=== PATIENT | female | born 1960 | race Caucasian/White ===

== ENCOUNTER 2017-09-19 18:15 | Inpatient (IN) | payer MEDICARE, MEDICAID ==
--- NOTE | 2017-09-19 19:58 | RAD ---
PORTABLE CHEST ONE VIEW 09/19/17 at 6:25 p.m. HISTORY: Chest pain. FINDINGS: The heart size is normal. The lungs are expanded without focal areas of consolidation, pneumothorax o r pleural effusions. There are degenerative changes in the spine and acromioclavicular joints. IMPRESSION: No acute process. POS: MYRAH
[2017-09-19 20:04] LABS: #Basophils 0.1 thou/uL (0.0-0.2); #Eosinphils 0.1 thou/uL (0.0-0.7); #Lymphocytes 2.2 thou/uL (1.20-3.40); #Monocytes 1.2 thou/uL (0.11-0.59); #Neutrophils 13.2 thou/uL (1.40-6.50); %Basophils 0.5 % (0.0-1.0); %Eosinophils 0.6 % (0.0-10.0); %Monocytes 7.3 % (0.0-10.0); %Neutrophils 78.6 % (42.0-75.0); Hemoglobin 13.3 g/dL (12.0-16.0); Mean Corpuscular HGB CONC 33.6 g/dL (32.0-36.0); Mean Corpuscular Hemoglobin 31.8 pg (27.0-31.0); Mean Corpuscular Volume 94.6 fl (81.0-99.0); Mean Platelet Volume 8.2 fL (7.4-10.4); Platelet Count 249 thou/uL (130-400); RBC Distribution Width 12.1 % (11.5-14.5); Red Blood Cell (RBC) Count 4.18 mill/uL (4.20-5.40); White Blood Cell (WBC) Count 16.8 thou/uL (4.8-10.8)
[2017-09-19 20:12] LABS: INR-International Normal Ratio 1.2; Prothrombin Time 15.2 SEC (12.0-14.7)
[2017-09-19 20:14] LABS: D-Dimer Test 0.76 *mcg/mL (0.27-0.43)
[2017-09-19 20:18] LABS: Bilirubin Negative (Negative); Blood, Urine Negative (Negative); Clarity CLOUDY (Clear); Glucose, Urine (Dipstick) Negative (Negative); Leukocyte Moderate (Negative); Nitrite Negative (Negative); Protein, Urine (Dipstick) 30 mg/dL (Neg-Trace); Specific Gravity, Urine 1.016 (1.002-1.036); Urobilinogen 0.2 mg/dL (0.2-1.0)
[2017-09-19 20:21] LABS: Bacteria/HPF 1+ HPF (None Seen); Hyaline Casts/LPF 0-3 HYALINE CAST LPF (0-3 Hyaline); Squamous Epithelial 0-3 HPF (0-3); WBC/HPF 21-50 HPF (0-3)
[2017-09-19] MEDS ORDERED: Ondansetron HCl/PF 4 MG/2 ML Vial ONE (20:32)
[2017-09-19] MEDS ORDERED: Morphine 4 MG/ML Carpuject ONE (20:32)
[2017-09-19 20:38] LABS: ALT (SGPT) 20 U/L (8-55); AST (SGOT) 26 U/L (5-34); Albumin 4.4 g/dL (3.5-5.0); Alkaline Phosphatase 104 U/L (40-150); Anion Gap 17 mmol/L (10-20); BUN (Urea Nitrogen) 11 mg/dL (9.8-20.1); Bilirubin, Total 0.4 mg/dL (0.2-1.2); Calc. Creatinine Clearance 0 mL/min (70-130); Calcium 9.8 mg/dL (7.8-10.44); Carbon Dioxide 20 mmol/L (22-29); Chloride 104 mmol/L (98-107); Estimated GFR-MDRD 60; Globulin 3.4 g/dL (2.4-3.5); Glucose 166 mg/dL (70-105); Lipase 6 U/L (8-78); Magnesium 1.2 mg/dL (1.6-2.6); Potassium 3.7 mmol/L (3.5-5.1); Protein, Total 7.8 g/dL (6.0-8.3); Sodium 137 mmol/L (136-145)
[2017-09-19 20:58] LABS: CKMB 0.5 ng/mL (0-6.6); Troponin I Less than 0.010 ng/mL (< 0.028)
[2017-09-19] MEDS ORDERED: Magnesium Sulfate 2 GM/100 ML BAG ONE (20:58)
--- NOTE | 2017-09-19 22:17 | CT ---
CT PULMONARY ANGIOGRAM WITH IV CONTRAST AND 3D POSTPROCESSING 09/19/17 HISTORY: Shortness of breath. Chest pain. FINDINGS: No filling defects are seen in the contrast opacified pulmonary arterial vasculature to suggest pulmo nary embolism. The thoracic aorta is opacified without aneurysmal dissection. No pleural or pericardi al effusions are seen. No pneumothoraces are identified. There are mild infiltrates versus atelectati c changes in the posterior lung cuello. There are degenerative changes in the spine. IMPRESSION: No CT evidence of pulmonary embolism. POS: MOSES
--- NOTE | 2017-09-19 22:46 | CT ---
CT ABDOMEN AND PELVIS WITH IV CONTRAST 09/19/17 HISTORY: Abdominal pain. FINDINGS: There are mild dependent changes in the lung bases. The patient is post cholecystectomy. Mild intrahe patic biliary ductal dilatation is seen likely due to reservoir effect. No hepatic mass is noted. The spleen, pancreas, adrenal glands and left kidney are normal. There is mild right sided hydroureteron ephrosis and right perinephric inflammatory change. No calculi are seen in the urinary tract. No free air, free fluid, lymphadenopathy is noted in the abdomen or pelvis. The patient is post hyste rectomy. There is mild sigmoid diverticulosis. There are vascular calcifications without evidence of aneurysmal dilatation of the abdominal aorta. There are degenerative changes in the spine. IMPRESSION: Recently passed urinary tract calculus versus UTI. POS: MYRA
[2017-09-19] MEDS ORDERED: Acetaminophen 500 MG TAB ONE (23:09)
[2017-09-19] MEDS ORDERED: Metoclopramide HCl 10 MG/2 ML VIAL ONE (23:35)
[2017-09-19] MEDS ORDERED: diphenhydrAMINE 50 MG/ML VIAL ONE (23:35)
[2017-09-20] MEDS ORDERED: HYDROcodone/Acetaminophen 5/325 mg Tablet ONE (00:02)
[2017-09-20] MEDS ORDERED: Ondansetron ODT 4 MG TAB SL PRN (01:27)
[2017-09-20] MEDS ORDERED: Acetaminophen 325 MG TAB PO PRN (01:27)
[2017-09-20] MEDS ORDERED: Sodium Chloride 0.9% 1,000 ML IV SCH (01:27)
[2017-09-20] MEDS ORDERED: Ondansetron HCl/PF 4 MG/2 ML Vial IVP PRN (01:27)
[2017-09-20 01:33] VITALS: BMI 25.1
[2017-09-20] MEDS ORDERED: cefTRIAXone\\ROCEPHIN 1 GM in Sodium Chloride 0.9% 100 ML IVPB SCH (09:00)
[2017-09-20] MEDS ORDERED: Azithromycin 250 MG TAB PO SCH (09:00)
[2017-09-20] MEDS: Acetaminophen 325 MG TAB PO PRN ×2 (09:30→20:39)
[2017-09-20] MEDS: Pregabalin 75 MG CAP PO SCH ×2 (10:07→20:37)
[2017-09-20] MEDS: Famotidine 20 MG TAB PO SCH ×2 (10:07→20:37)
[2017-09-20] MEDS: Enoxaparin Sodium 40 MG/0.4 ML SYRINGE SC SCH (10:09)
[2017-09-20] MEDS: Lisinopril 5 MG TAB PO SCH (10:09)
[2017-09-20] MEDS: Azithromycin 250 MG TAB PO SCH (10:23)
[2017-09-20] MEDS ORDERED: HumaLOG 300 UNITS/3 ML VIAL SC PRN (15:33)
[2017-09-20] MEDS ORDERED: Dextrose 50% Abboject 50 ML SYRINGE IVP PRN (15:33)
[2017-09-20] MEDS ORDERED: Dextrose 5% in Water 1,000 ML IV PRN (15:33)
[2017-09-20] MEDS ORDERED: Aspirin/APAP/Caffeine Tab (Excedrin Migraine) PO PRN (15:37)
[2017-09-20] MEDS: glipiZIDE 10 MG TAB PO SCH (16:05)
[2017-09-20] MEDS: traMADol HCl 50 MG TAB PO PRN ×2 (16:05→22:25)
[2017-09-20] MEDS: Atorvastatin Calcium 20 MG TAB PO SCH (20:37)
[2017-09-20] MEDS: cefTRIAXone\\ROCEPHIN 1 GM, Syringe 0.4 ML in Sterile Water 9.6 ML SLOW IVP SCH (22:24)
[2017-09-21] MEDS: Acetaminophen 325 MG TAB PO PRN ×2 (01:04→20:36)
[2017-09-21] MEDS: Ondansetron ODT 4 MG TAB PO PRN ×4 (01:04→22:52)
[2017-09-21] MEDS ORDERED: Aspirin/APAP/Caffeine Tab (Excedrin Migraine) PO PRN (03:58)
[2017-09-21] MEDS: traMADol HCl 50 MG TAB PO PRN ×4 (05:03→22:51)
[2017-09-21 05:47] LABS: #Lymphocytes 1.9 thou/uL (1.20-3.40); #Monocytes 1.1 thou/uL (0.11-0.59); #Neutrophils 8.3 thou/uL (1.40-6.50); %Basophils 0.1 % (0.0-1.0); %Eosinophils 0.4 % (0.0-10.0); %Lymphocytes 16.6 % (21.0-51.0); %Monocytes 9.5 % (0.0-10.0); %Neutrophils 73.4 % (42.0-75.0); Mean Corpuscular HGB CONC 33.1 g/dL (32.0-36.0); Mean Corpuscular Hemoglobin 31.6 pg (27.0-31.0); Mean Corpuscular Volume 95.5 fl (81.0-99.0); Mean Platelet Volume 8.4 fL (7.4-10.4); Platelet Count 188 thou/uL (130-400); RBC Distribution Width 12.1 % (11.5-14.5); Red Blood Cell (RBC) Count 3.47 mill/uL (4.20-5.40); White Blood Cell (WBC) Count 11.3 thou/uL (4.8-10.8)
[2017-09-21] MEDS: glipiZIDE 10 MG TAB PO SCH ×2 (08:56→15:35)
[2017-09-21] MEDS: Azithromycin 250 MG TAB PO SCH (08:56)
[2017-09-21] MEDS: Pregabalin 75 MG CAP PO SCH ×2 (08:56→20:36)
[2017-09-21] MEDS: Lisinopril 5 MG TAB PO SCH (08:57)
[2017-09-21] MEDS: Enoxaparin Sodium 40 MG/0.4 ML SYRINGE SC SCH (08:57)
[2017-09-21] MEDS: Famotidine 20 MG TAB PO SCH ×2 (08:57→20:37)
--- NOTE | 2017-09-21 10:56 | PDOC.PN ---
- Subjective Encounter Start Date: 09/21/17 Encounter Start Time: 10:54 Subjective: Seen and examined -c/o severe headache with light borthering her - Objective Resuscitation Status: Resuscitation Status FULL:Full Resuscitation Vital Signs & Weight: Vital Signs (12 hours) Temp Pulse Resp BP Pulse Ox 09/21/17 08:00 99.2 F 93 17 112/67 99 09/21/17 04:00 99.7 F H 104 H 20 134/58 L 93 L 09/21/17 00:00 99.2 F 105 H 20 107/52 L 96 Weight Weight 163 lb 11.2 oz I&O: 09/20/17 09/21/17 09/22/17 06:59 06:59 06:59 Intake Total 760 1400 Output Total 600 1400 Balance 160 0 Result Diagrams: 09/21/17 05:14 09/19/17 19:47 Additional Labs: Accuchecks 09/21/17 09/21/17 09/20/17 05:46 00:52 20:15 POC Glucose 213 H 166 H 204 H 09/20/17 09/20/17 16:18 11:28 POC Glucose 161 H 207 H Phys Exam - Physical Examination Constitutional: NAD HEENT: PERRLA, moist MMs, sclera anicteric, TM's clear Neck: no nodes, no JVD, supple, full ROM Respiratory: no wheezing, no rhonchi, clear to auscultation bilateral Cardiovascular: RRR, no rub, gallop Gastrointestinal: soft, non-tender, no distention, positive bowel sounds Musculoskeletal: no edema, pulses present Dx/Plan (1) Pneumonia Code(s): J18.9 - PNEUMONIA, UNSPECIFIED ORGANISM Status: Acute (2) UTI (urinary tract infection) Status: Acute (3) Diabetes 1.5, managed as type 2 Code(s): E10.9 - TYPE 1 DIABETES MELLITUS WITHOUT COMPLICATIONS Status: Acute (4) Migraine with acute onset aura Code(s): G43.109 - MIGRAINE WITH AURA, NOT INTRACTABLE, W/O STATUS MIGRAINOSUS Status: Acute - Plan plan discussed w/ family, continue antibiotics, PT/OT, social worker school, respiratory therapy Antibiotics adequate per urine senstivity -: imitrex * .
[2017-09-21] MEDS ORDERED: SUMAtriptan Succinate 25 MG TAB PO SCH (11:30)
--- NOTE | 2017-09-21 12:20 | HP ---
REASON FOR ADMISSION/CHIEF COMPLAINT: Shortness of breath. HISTORY OF PRESENT ILLNESS: This is a 56-year-old patient with a past medical history significant fo r diabetes and hypertension, who presented here with a several hour history of shortness of breath, a ssociated cough that . The patient denies any sick contacts. She presented to the ER where michell ging studies were suspicious for a urinary tract infection as well as some . The patient denies any hematuria, denies any dysuria. She is now admitted for further workup. The patient also did gi ve history of also vomiting, but not persistent. PAST MEDICAL HISTORY: Significant for diabetes type 2, hypertension, dyslipidemia. History . ALLERGIES: LEVAQUIN. SOCIAL HISTORY: Denies alcohol, tobacco or illicit drug use. REVIEW OF SYSTEMS: As documented in the body of the history, all the other systems were reviewed and not significant unless related to the present illness. LABORATORY INVESTIGATION: White count 16,800, H&H is unremarkable. Urine showed 1+ bacteria with a lot of white blood cells, moderate leukocyte esterase. PHYSICAL EXAMINATION: GENERAL: The patient was found to be in some respiratory distress, constantly coughing. VITAL SIGNS: Temperature 97.5, pulse 88, respiratory rate 17, O2 sat 98%, blood pressure 90/54. HEENT: Unremarkable. . RESPIRATORY: Some rales. DIGESTIVE SYSTEM: Revealed a benign abdomen. SKIN: Showed no gross rash. NEURO: IMPRESSION: 1. Generalized bodyaches with cough and shortness of breath, query PCP pneumonia. 2. Urinary tract infection. 3. Possible recent nephrolithiasis. 4. Type 2 diabetes. PLAN: 1. The patient to be covered with antibiotics for possible pneumonitis and urinary tract infection. 2. management. 3. Further management to be dependent on the clinical course. The patient to continue with diabetic management. The patient to be on sliding scale as scheduled.
[2017-09-21] MEDS: metFORMIN XR 500 MG TAB PO SCH (16:03)
[2017-09-21] MEDS: Atorvastatin Calcium 20 MG TAB PO SCH (20:36)
[2017-09-21] MEDS: cefTRIAXone\\ROCEPHIN 1 GM, Syringe 0.4 ML in Sterile Water 9.6 ML SLOW IVP SCH (22:51)
[2017-09-22] MEDS: traMADol HCl 50 MG TAB PO PRN ×3 (04:51→17:42)
[2017-09-22 05:31] LABS: #Basophils 0.1 thou/uL (0.0-0.2); #Eosinphils 0.2 thou/uL (0.0-0.7); #Lymphocytes 2.1 thou/uL (1.20-3.40); #Monocytes 0.8 thou/uL (0.11-0.59); #Neutrophils 4.8 thou/uL (1.40-6.50); %Basophils 0.7 % (0.0-1.0); %Eosinophils 2.9 % (0.0-10.0); %Lymphocytes 26.1 % (21.0-51.0); %Monocytes 10.1 % (0.0-10.0); %Neutrophils 60.1 % (42.0-75.0); Hemoglobin 10.9 g/dL (12.0-16.0); Mean Corpuscular HGB CONC 33.5 g/dL (32.0-36.0); Mean Corpuscular Hemoglobin 31.8 pg (27.0-31.0); Mean Corpuscular Volume 94.9 fl (81.0-99.0); Mean Platelet Volume 8.6 fL (7.4-10.4); Platelet Count 190 thou/uL (130-400); Red Blood Cell (RBC) Count 3.42 mill/uL (4.20-5.40)
--- NOTE | 2017-09-22 07:08 | PDOC.PN ---
- Subjective Encounter Start Date: 09/22/17 Encounter Start Time: 07:07 Subjective: Seen and examined still c/o migraine headache and photophobia -: Shortness of breath improving - Objective Resuscitation Status: Resuscitation Status FULL:Full Resuscitation Vital Signs & Weight: Vital Signs (12 hours) Temp Pulse Resp BP Pulse Ox 09/22/17 04:00 97.8 F 76 20 99/54 L 95 09/22/17 00:00 98.8 F 75 16 141/66 H 93 L 09/21/17 20:00 97.8 F 82 14 131/62 99 Weight Weight 159 lb 9.6 oz I&O: 09/21/17 09/22/17 09/23/17 06:59 06:59 06:59 Intake Total 1400 1120 Output Total 1400 1500 Balance 0 -380 Result Diagrams: 09/22/17 05:02 09/19/17 19:47 Additional Labs: Accuchecks 09/22/17 09/21/17 09/21/17 05:29 20:41 15:38 POC Glucose 140 H 131 H 143 H 09/21/17 11:44 POC Glucose 158 H Phys Exam - Physical Examination Constitutional: NAD HEENT: PERRLA, moist MMs, sclera anicteric, TM's clear Neck: no nodes, no JVD, supple Respiratory: no wheezing Cardiovascular: RRR, no significant murmur, no rub Gastrointestinal: soft, non-tender, no distention, positive bowel sounds Musculoskeletal: no edema, pulses present Dx/Plan (1) Pneumonia Code(s): J18.9 - PNEUMONIA, UNSPECIFIED ORGANISM Status: Acute (2) UTI (urinary tract infection) Status: Acute (3) Diabetes 1.5, managed as type 2 Code(s): E10.9 - TYPE 1 DIABETES MELLITUS WITHOUT COMPLICATIONS Status: Acute (4) Migraine with acute onset aura Code(s): G43.109 - MIGRAINE WITH AURA, NOT INTRACTABLE, W/O STATUS MIGRAINOSUS Status: Acute - Plan continue antibiotics, manager social work, respiratory therapy Resume imitrex-responded well to one dose yesterday -: Change to oral antiobiotics -: If sustained improvement consider d/c next 24hrs * .
[2017-09-22] MEDS ORDERED: SUMAtriptan Succinate 50 MG TAB PO PRN (07:10)
[2017-09-22] MEDS ORDERED: SUMAtriptan Succinate 25 MG TAB PO SCH (07:15)
[2017-09-22] MEDS: metFORMIN XR 500 MG TAB PO SCH ×2 (07:40→17:42)
[2017-09-22] MEDS: glipiZIDE 10 MG TAB PO SCH ×2 (07:40→17:43)
[2017-09-22] MEDS: Lisinopril 5 MG TAB PO SCH (09:14)
[2017-09-22] MEDS: Cefdinir 300 MG CAP PO SCH ×2 (09:14→21:42)
[2017-09-22] MEDS: Famotidine 20 MG TAB PO SCH ×2 (09:14→21:43)
[2017-09-22] MEDS: Azithromycin 250 MG TAB PO SCH (09:14)
[2017-09-22] MEDS: Pregabalin 75 MG CAP PO SCH ×2 (09:15→21:42)
[2017-09-22] MEDS: Enoxaparin Sodium 40 MG/0.4 ML SYRINGE SC SCH (09:17)
[2017-09-22] MEDS: Atorvastatin Calcium 20 MG TAB PO SCH (21:42)
[2017-09-23] MEDS: traMADol HCl 50 MG TAB PO PRN ×2 (00:08→08:35)
[2017-09-23 05:18] LABS: #Eosinphils 0.2 thou/uL (0.0-0.7); #Lymphocytes 2.8 thou/uL (1.20-3.40); #Monocytes 0.6 thou/uL (0.11-0.59); #Neutrophils 4.3 thou/uL (1.40-6.50); %Basophils 0.4 % (0.0-1.0); %Eosinophils 2.9 % (0.0-10.0); %Lymphocytes 34.6 % (21.0-51.0); %Monocytes 7.9 % (0.0-10.0); Mean Corpuscular HGB CONC 34.5 g/dL (32.0-36.0); Mean Corpuscular Hemoglobin 32.8 pg (27.0-31.0); Mean Corpuscular Volume 94.9 fl (81.0-99.0); Mean Platelet Volume 8.5 fL (7.4-10.4); Platelet Count 233 thou/uL (130-400); Red Blood Cell (RBC) Count 3.66 mill/uL (4.20-5.40); White Blood Cell (WBC) Count 7.9 thou/uL (4.8-10.8)
[2017-09-23] MEDS: Cefdinir 300 MG CAP PO SCH (08:34)
[2017-09-23] MEDS: metFORMIN XR 500 MG TAB PO SCH (08:34)
[2017-09-23] MEDS: Famotidine 20 MG TAB PO SCH (08:34)
[2017-09-23] MEDS: Azithromycin 250 MG TAB PO SCH (08:34)
[2017-09-23] MEDS: Pregabalin 75 MG CAP PO SCH (08:35)
[2017-09-23] MEDS: Lisinopril 5 MG TAB PO SCH (08:35)
[2017-09-23] MEDS: glipiZIDE 10 MG TAB PO SCH (08:35)
[2017-09-23] MEDS: Enoxaparin Sodium 40 MG/0.4 ML SYRINGE SC SCH (08:36)
--- NOTE | 2017-09-23 10:52 | PDOC.PN ---
- Subjective Encounter Start Date: 09/23/17 Encounter Start Time: 07:50 -: old records requested/rev Patient seen and examined. No new complaints. No overnight events - Objective Resuscitation Status: Resuscitation Status FULL:Full Resuscitation MAR Reviewed: Yes Vital Signs & Weight: Vital Signs (12 hours) Temp Pulse Resp BP Pulse Ox 09/23/17 08:00 97.7 F 77 17 117/57 L 97 09/23/17 04:36 98.3 F 65 16 106/58 L 96 Weight Weight 157 lb 14.4 oz I&O: 09/22/17 09/23/17 09/24/17 06:59 06:59 06:59 Intake Total 1120 360 Output Total 1500 800 Balance -380 -440 Result Diagrams: 09/23/17 04:08 09/19/17 19:47 Additional Labs: Accuchecks 09/23/17 09/22/17 09/22/17 05:25 20:52 17:18 POC Glucose 140 H 149 H 160 H 09/22/17 11:29 POC Glucose 161 H EKG Reviewed by me: Yes Phys Exam - Physical Examination Constitutional: NAD HEENT: PERRLA, moist MMs, sclera anicteric Neck: no JVD, supple Respiratory: no wheezing, no rales, no rhonchi Cardiovascular: RRR, no significant murmur, no rub Gastrointestinal: soft, non-tender, no distention, positive bowel sounds Musculoskeletal: no edema, pulses present Neurological: non-focal, normal sensation, moves all 4 limbs Psychiatric: normal affect, A&O x 3 Skin: no rash, normal turgor Dx/Plan (1) Migraine headache Code(s): G43.909 - MIGRAINE, UNSP, NOT INTRACTABLE, WITHOUT STATUS MIGRAINOSUS Status: Acute (2) Sepsis Code(s): A41.9 - SEPSIS, UNSPECIFIED ORGANISM Status: Acute (3) UTI (urinary tract infection) Status: Acute (4) Diabetes type 2, controlled Code(s): E11.9 - TYPE 2 DIABETES MELLITUS WITHOUT COMPLICATIONS Status: Chronic (5) Dyslipidemia Code(s): E78.5 - HYPERLIPIDEMIA, UNSPECIFIED Status: Chronic (6) Hypertension Code(s): I10 - ESSENTIAL (PRIMARY) HYPERTENSION Status: Chronic - Plan cont current plan of care, continue antibiotics * medication reviewed as below * symptomatic treatment * see discharge summery. Review of Systems - Review of Systems ENT: negative: Ear Pain, Ear Discharge, Nose Pain, Nose Discharge, Nose Congestion, Mouth Pain, Mouth Swelling, Throat Pain, Throat Swelling, Other Respiratory: negative: Cough, Dry, Shortness of Breath, Hemoptysis, SOB with Excertion, Pleuritic Pain, Sputum, Wheezing Cardiovascular: negative: chest pain, palpitations, orthopnea, paroxysmal nocturnal dyspnea, edema, light headedness, other Gastrointestinal: negative: Nausea, Vomiting, Abdominal Pain, Diarrhea, Constipation, Melena, Hematochezia, Other Genitourinary: negative: Dysuria, Frequency, Incontinence, Hematuria, Retention , Other Musculoskeletal: negative: Neck Pain, Shoulder Pain, Arm Pain, Back Pain, Hand Pain, Leg Pain, Foot Pain, Other Skin: negative: Rash, Lesions, Zane, Bruising, Other - Medications/Allergies Allergies/Adverse Reactions: Allergies Allergy/AdvReac Type Severity Reaction Status Date / Time levofloxacin [From Levaquin] Allergy Verified 09/20/17 01:29 Medications: Current Medications Acetaminophen (Tylenol) 650 mg PO Q4H PRN PRN Reason: Headache/Fever or Pain Last Admin: 09/21/17 20:36 Dose: 650 mg Acetaminophen/Aspirin/Caffeine (Excedrin Migraine) 2 tab PO DAILYPRN PRN PRN Reason: Headache Last Admin: 09/21/17 11:01 Dose: 2 tab Atorvastatin Calcium (Lipitor) 20 mg PO HS [facility] Last Admin: 09/22/17 21:42 Dose: 20 mg Azithromycin (Zithromax) 500 mg PO DAILY [facility] Last Admin: 09/23/17 08:34 Dose: 500 mg Cefdinir (Omnicef) 300 mg PO BID [facility] Last Admin: 09/23/17 08:34 Dose: 300 mg Dextrose/Water (Dextrose 50%) 25 gm IVP PRN PRN PRN Reason: HYPOGLYCEMIA PROTOCOL Enoxaparin Sodium (Lovenox) 40 mg SC 0900 [facility] Last Admin: 09/23/17 08:36 Dose: 40 mg Famotidine (Pepcid) 20 mg PO BID [facility] Last Admin: 09/23/17 08:34 Dose: 20 mg Glipizide (Glucotrol) 10 mg PO BID-AC [facility] Last Admin: 09/23/17 08:35 Dose: 10 mg Glucagon (Glucagon) 1 mg IM PRN PRN PRN Reason: HYPOGLYCEMIA PROTOCOL Dextrose/Water (D5w) 1,000 mls @ 0 mls/hr IV INF PRN; As Directed PRN Reason: HYPOGLYCEMIA PROTOCOL Insulin Human Lispro (Humalog) 0 units SC .MILD SLIDING SCALE PRN; Protocol PRN Reason: MILD SLIDING SCALE Last Admin: 09/20/17 20:39 Dose: 3 unit Lisinopril (Zestril) 5 mg PO DAILY [facility] Last Admin: 09/23/17 08:35 Dose: 5 mg Metformin HCl (Glucophage Xr) 1,000 mg PO BID-[facility] Last Admin: 09/23/17 08:34 Dose: 1,000 mg Ondansetron HCl (Zofran Odt) 4 mg PO Q6H PRN PRN Reason: Nausea/Vomiting Last Admin: 09/21/17 22:52 Dose: 4 mg Pregabalin (Lyrica) 75 mg PO BID [facility] Last Admin: 09/23/17 08:35 Dose: 75 mg Sodium Chloride (Flush - Normal Saline) 10 ml IVF Q12HR [facility] Last Admin: 09/23/17 08:39 Dose: 10 ml Sodium Chloride (Flush - Normal Saline) 10 ml IVF PRN PRN PRN Reason: Saline Flush Last Admin: 09/21/17 22:51 Dose: 10 ml Sumatriptan Succinate (Imitrex) 50 mg PO PRN PRN PRN Reason: Migraine Headache Tramadol HCl (Ultram) 50 mg PO Q6H PRN PRN Reason: Pain Last Admin: 09/23/17 08:35 Dose: 50 mg
[2017-09-23 11:44] VITALS: BP 122/59; TEMP 98.1
--- NOTE | 2017-09-23 12:08 | DIS ---
DATE OF ADMISSION: 09/20/2017 DATE OF DISCHARGE: 09/23/2017 PRIMARY CARE PHYSICIAN: Hayde Velasco M.D. DISCHARGE DISPOSITION: Home. PRIMARY DISCHARGE DIAGNOSES: 1. Sepsis. 2. Urinary tract infection. 3. Acute migraine headache. 4. Hypomagnesemia, corrected. SECONDARY DISCHARGE DIAGNOSES: Diabetes type 2, hypertension, dyslipidemia. PRIMARY PROCEDURE/OPERATION: None. RADIOLOGICAL INVESTIGATION: Chest x-ray showed no acute cardiopulmonary process. Abdomen and pelvis CT scan showed a recently passed urinary tract calculus, mild right-sided hydroureteronephrosis, and right perinephric inflammatory change. CT angio was negative for PE. SIGNIFICANT LABORATORY DATA: His WBC 7.9, hemoglobin 12.0, platelets 233. INR 1.2, D-dimer 0.76, cr eatinine 0.95. LFT normal. Urinalysis suggestive of UTI. Urine culture grew Citrobacter. Blood cu lture negative. Influenza screen negative. DISCHARGE MEDICATIONS: Excedrin 1 or 2 tablets p.o. daily p.r.n. for migraine headaches, Lipitor 20 mg p.o. at bedtime, Omnicef 300 mg p.o. b.i.d. for 7 days, glipizide 10 mg p.o. b.i.d., lisinopril 5 mg p.o. daily, metformin 1000 mg p.o. b.i.d., Lyrica 75 mg p.o. b.i.d., and tramadol 50 mg q.6 hourly p.r.n. CONTRAINDICATIONS: None. CODE STATUS: FULL CODE. INPATIENT CONSULTANTS: None. ALLERGIES: LEVAQUIN. DISCHARGE PLAN: Post hospital, the patient will follow up with primary care physician in 1 week. HOSPITAL COURSE: A 56-year-old female who was admitted by Dr. Rao, please see his H and P for further details. The patient was having UTI symptoms and right-sided CVA tenderness. She was also meeting sepsis criteria. She had elevated D-dimer and that is why CT angio was done which was negati ve for PE. Chest x-ray was normal. While in the hospital, she was treated with Rocephin. She had u rine culture positive for Citrobacter. On discharge, we changed to Omnicef to finish complete course of therapy. Patient will resume all her previous medications. While in hospital, the patient was c ompletely asymptomatic. On the day of discharge and day before, she was having mild migraine headach e which was also improving with symptomatic treatment. Patient is seen and examined at bedside today. Please see the progress note from today for further d etails. All the medication prescriptions sent to her pharmacy.
== END 2017-09-23 11:38 | disposition home or self-care (01) | DRG 872 ==
LOC: ERS 18:15 → 2NO 09-20 00:59
PROVIDERS: ADMIT Internal Medicine; ATTEND Internal Medicine
DX: A41.9 Sepsis, unspecified organism (principal); E83.42 Hypomagnesemia; N39.0 Urinary tract infection, site not specified; N13.6 Pyonephrosis; E11.9 Type 2 diabetes mellitus without complications; I10 Essential (primary) hypertension; E78.5 Hyperlipidemia, unspecified; Z88.1 Allergy status to other antibiotic agents; B96.89 Other specified bacterial agents as the cause of diseases classified elsewhere; G43.109 Migraine with aura, not intractable, without status migrainosus; F17.210 Nicotine dependence, cigarettes, uncomplicated; F32.9 Major depressive disorder, single episode, unspecified
CPT/HCPCS: 36415; 36416; 71045; 71275; 74177; 80053; 81003; 81015; 82553; 83605; 83690; 83735; 84443; 84484; 85025; 85379; 85610; 87040; 87077; 87086; 87186; 90471; 90732; 93005; 96361; 96365; 96367; 96375; 99406; A4216; G0009; J0696; J1200; J1650; J2270; J2405; J2765; J3475; Q0162

== ENCOUNTER 2017-12-10 14:43 | Outpatient (CLI) | payer MEDICARE, MEDICAID | END 2017-12-10 14:44 | disposition home or self-care (01) | LOC: BICMAMMO 14:43 | PROVIDERS: ATTEND Family Medicine | DX: Z12.31 Encounter for screening mammogram for malignant neoplasm of breast (principal); M25.551 Pain in right hip; M25.561 Pain in right knee; R92.1 Mammographic calcification found on diagnostic imaging of breast; M16.11 Unilateral primary osteoarthritis, right hip | CPT/HCPCS: 77063; 77067 ==

== ENCOUNTER 2017-12-18 07:57 | Outpatient (CLI) | payer MEDICARE, MEDICAID | END 2017-12-18 07:58 | disposition home or self-care (01) | LOC: BICMRI 07:57 | PROVIDERS: ATTEND Family Medicine | DX: M51.16 Intervertebral disc disorders with radiculopathy, lumbar region (principal); M51.17 Intervertebral disc disorders with radiculopathy, lumbosacral region; M99.83 Other biomechanical lesions of lumbar region | CPT/HCPCS: 72148 ==

== ENCOUNTER 2018-02-18 19:13 | Emergency (ER) | payer MEDICARE, OTHER ==
[2018-02-18] MEDS ORDERED: methylPREDNISolone Sod Succ/PF 125 MG/2 ML VIAL ONE (19:31)
[2018-02-18] MEDS ORDERED: diphenhydrAMINE 50 MG/ML VIAL ONE (19:31)
[2018-02-18] MEDS ORDERED: Famotidine 20 MG TAB ONE (19:51)
== END 2018-02-18 22:42 | disposition home or self-care (01) ==
LOC: ERS 19:13
DX: T78.3XXA Angioneurotic edema, initial encounter (principal); K21.9 Gastro-esophageal reflux disease without esophagitis; E11.9 Type 2 diabetes mellitus without complications; E78.5 Hyperlipidemia, unspecified; I10 Essential (primary) hypertension; F32.9 Major depressive disorder, single episode, unspecified; F17.210 Nicotine dependence, cigarettes, uncomplicated; Z79.899 Other long term (current) drug therapy; Z79.84 Long term (current) use of oral hypoglycemic drugs
CPT/HCPCS: 96361; 96374; 96375; J1200; J2930

== ENCOUNTER 2018-03-31 11:53 | Observation (INO) | payer MEDICARE, MEDICAID ==
[2018-03-31] MEDS ORDERED: diphenhydrAMINE 50 MG/ML VIAL ONE (12:49)
[2018-03-31] MEDS ORDERED: Famotidine/PF 20 mg/2ml Vial SLOW IVP SCH (13:00)
[2018-03-31] MEDS ORDERED: methylPREDNISolone Sod Succ/PF 125 MG/2 ML VIAL ONE (14:28)
[2018-03-31] MEDS ORDERED: Sterile Water 10 ML ONE (14:29)
--- NOTE | 2018-03-31 15:44 | PDOC.FPRHP ---
- History of Present Illness Chief Complaint: Angioedema, face swelling History of Present Illness: This is a 57 yo F with a PMH of DM, HTN, HLD, and GERD who presents to the ED with a cc of facial swelling. She states that she was taking her medication this morning and her lips began swelling, first on one side and then spread to the othe rside. She denies any trouble breathing, wheezing, or chest pain. She states that she feels like something is stuck in her throat but this feeling is resloving. She states that she has been having some stabbing pain with swallowing in the last 3 days that is resolving. She states that she had a similar episode of lip swelling 3-4 months ago. She has been taking lisinopril for 3 years and continued taking it after her initial episode of lip swelling. ED Course: Pt, Received solumedrol in ED - Allergies/Adverse Reactions Allergies Allergy/AdvReac Type Severity Reaction Status Date / Time levofloxacin [From Levaquin] Allergy Verified 09/20/17 01:29 - Home Medications Medication Instructions Recorded Confirmed Type Aspirin/Acetaminophen/Caffeine 2 tablet PO DAILY PRN 09/20/17 09/20/17 History [Excedrin Extra Strength Caplet] Atorvastatin Calcium [Lipitor] 20 mg PO HS 09/20/17 09/20/17 History Lisinopril [Zestril] 5 mg PO DAILY 09/20/17 09/20/17 History Pregabalin [Lyrica] 75 mg PO BID 09/20/17 09/20/17 History glipiZIDE [Glipizide] 10 mg PO BID 09/20/17 09/20/17 History metFORMIN HCl [Fortamet] 1,000 mg PO BID-WM 09/20/17 09/20/17 History Cefdinir [Omnicef] 300 mg PO BID #14 cap 09/23/17 Rx traMADol HCl [Ultram] 50 mg PO Q6H PRN #30 tab 09/23/17 Rx - History PMHx:DMII, HLD, HTN, GERD PSHx: Appendectomy, cholecyectomy, hysterectomy FHx:Mother had Stroke, [place] Social: Quit smoking a 6 months ago - Review of Systems General: denies: fever/chills, weight/appetite/sleep changes Eyes: denies: eye pain, vision changes ENT: denies: nasal congestion, rhinorrhea Respiratory: reports: cough (dry). denies: shortness of breath Cardiovascular: reports: palpitation (States that she will have palpitations randomly, at rest, denies pain or SOB with episodes). denies: chest pain Gastrointestinal: denies: nausea, vomiting, diarrhea, constipation, abdominal pain Genitourinary: denies: dysuria, discharge Skin: denies: rashes, lesions Musculoskeletal: reports: pain (Has back pain), stiffness Neurological: denies: numbness, syncope Psychological: denies: anxiety, depression - Vital signs BP: [109/78] HR: [93] RR: [16] Tmax: [98.1] Pox: [96]% on [RA] Wt: [71.67] - Physical Exam Constitutional: NAD, awake, alert and oriented, well developed HEENT: normocephalic and atraumatic, PERRLA, EOMI, conjunctiva clear -HEENT: Pt. has mild to moderate upper and lower lip swelling. Mild tongue swelling. No neck swelling Neck: FROM, trachea midline Chest: no-tender to palpation Heart: RRR, normal S1/S2, no murmurs/rubs/gallops Lungs: CTAB, no respiratory distress, good air movement, no rales/rhonchi, no wheezing, no retractions Abdomen: soft, non-tender, bowel sounds present Musculoskeletal: normal structure, normal tone, ROM grossly normal Neurological: no focal deficit, normal sensation Skin: no rash/lesions, good turgor Heme/Lymphatic: no unusual bruising or bleeding, no purpura Psychiatric: normal mood and affect, good judgment and insight, intact recent and remote memory FMR H&P: Results - Labs Lab results: Blood glucose: 158 FMR H&P: A/P - Problem List (1) Angioedema Current Visit: Yes Status: Acute Code(s): T78.3XXA - ANGIONEUROTIC EDEMA, INITIAL ENCOUNTER (2) Diabetes mellitus, type 2 Current Visit: Yes Status: Acute (3) Dyslipidemia Current Visit: No Status: Chronic Code(s): E78.5 - HYPERLIPIDEMIA, UNSPECIFIED - Plan Angioedema likely 2/2 lisinopril -Admit to Observation -DC lisinopril -CBC, BMP -Prednisone 20mg daily for 4 days -Benadryl 25mg Q8hr for 5 days -Pepcid 40mg daily for 5 days DM2 - Glucose checks -Home medications -SSI HTN -Continue home meds -DC lisinopril HLD -Continue home atorvastatin GERD -Pepcid Code: full Family: None at bedside Prophylaxis: Pepcid FMR H&P: Upper Level - Pertinent history 57 yo female here for lip and face swelling. Patient reports that she takes lisinopril for BP for the last 3 years. About 3 months ago she had similar symptoms of lip swelling and came to the ER where they told her to stop taking lisinopril. She says this current episode "is my own fault" because she continued taking the lisinopril. She saw her PCP about 3 weeks ago, but is unsure if she ever told him about the lip swelling and ER visit from 3 months ago. Also, yesterday she had a stabbing, fullness in her throat. Denies CP, SOB , N/V. Endorses chronic cough and gagging episode. In the ER she received benadryl, solumedrol, pepcid, 1L bolus NS. - Pertinent findings 109/78 HR: 93 Temp: 98.1 Sat: 96% on RA RR: 16 Gen: NAD Pulm: CTAB, nonlabored Card: RRR, no m/g/r mouth: mild to moderate edema of the upper and lower lips, symmetric; no swelling of the oropharynx throat: nontender to palpation ext: no swelling or edema abd: BSx4, NT, ND - Plan Date/Time: 03/31/18 [id number] ISantiago DO, have evaluated this patient and agree with findings/plan as outlined by rn internal medicine resident. Pertinent changes/additions are listed here. Angioedema -suspected to be due to lisinopril -stop lisinopril -start on -sartan -did not need epinephrine in the ER, no resp distress at this time -continue with pepcid, steroids, benadryl -possible d/c tomorrow if ok overnight DMII continue with home regimen accuchecks qACHS HLD continue with home regimen Attending Addendum - Attending Addendum Date/Time: 03/31/18 1920 I personally evaluated the patient and discussed the management with Dr. Medina I agree with the History, Examination, Assessment and Plan documented above with any addition or exceptions noted below. 57 yo female with repeated episode of angioedema after taking ACEI. Patient airway non compromised, no respiratory distress no generalized symptoms. Patient given repeated episode of angioedema after ACEI should discontinue this medication. Patient to be placed in observation status no further diagnostic evaluation at this time.
[2018-03-31] MEDS ORDERED: Dextrose 5% in Water 1,000 ML IV PRN (19:59)
[2018-03-31] MEDS ORDERED: Acetaminophen 325 MG TAB PO PRN (19:59)
[2018-03-31] MEDS ORDERED: Ondansetron ODT 4 MG TAB PO PRN (19:59)
[2018-03-31] MEDS ORDERED: Dextrose 50% Abboject 50 ML SYRINGE SLOW IVP PRN (19:59)
[2018-03-31] MEDS: diphenhydrAMINE 25 MG CAP PO SCH (20:49)
[2018-03-31] MEDS: Famotidine 20 MG TAB PO SCH (20:49)
[2018-03-31] MEDS: Insulin Regular 300 UNITS/3 ML VIAL SC PRN (20:54)
[2018-03-31 20:55] LABS: #Lymphocytes 1.8 thou/uL (1.20-3.40); #Monocytes 0.2 thou/uL (0.11-0.59); #Neutrophils 8.3 thou/uL (1.40-6.50); %Eosinophils 0.4 % (0.0-10.0); %Lymphocytes 17.5 % (21.0-51.0); %Monocytes 2.2 % (0.0-10.0); Hemoglobin 9.7 g/dL (12.0-16.0); Mean Corpuscular HGB CONC 33.9 g/dL (32.0-36.0); Mean Corpuscular Hemoglobin 28.9 pg (27.0-31.0); Mean Corpuscular Volume 85.5 fL (78.0-98.0); Mean Platelet Volume 6.3 fL (7.4-10.4); Platelet Count 509 thou/uL (130-400); RBC Distribution Width 13.6 % (11.5-14.5); Red Blood Cell (RBC) Count 3.35 mill/uL (4.20-5.40); White Blood Cell (WBC) Count 10.4 thou/uL (4.8-10.8)
[2018-03-31 21:13] LABS: Anion Gap 14 mmol/L (10-20); BUN (Urea Nitrogen) 11 mg/dL (9.8-20.1); Calc. Creatinine Clearance 0 mL/min (70-130); Calcium 9.6 mg/dL (7.8-10.44); Carbon Dioxide 24 mmol/L (22-29); Chloride 102 mmol/L (98-107); Estimated GFR-MDRD 53; Glucose 173 mg/dL (70-105); Potassium 4.5 mmol/L (3.5-5.1); Sodium 135 mmol/L (136-145)
[2018-04-01] MEDS: diphenhydrAMINE 25 MG CAP PO SCH ×3 (02:11→13:05)
--- NOTE | 2018-04-01 05:35 | PDOC.FM ---
Addendum entered and electronically signed by Sterling Medina DO 04/01/18 09:02 : Due to change in pt.s swelling and increased pain, a complement 4, complement 1 inhibitor, and CRP levels were obtained this morning. 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 Later in the morning, she states that she started swelling again and that it was painful to swallow. She also states that it is tender to palpation. She denies any respiratory complaints or throat swelling. We discussed her hemoglobin level and she verbally consented to a SAADIA with occult blood screen. - Objective MAR Reviewed: Yes Vital Signs & Weight: Vital Signs (12 hours) Temp Pulse Resp BP Pulse Ox 04/01/18 02:11 78 18 110/56 L 96 03/31/18 19:43 98.1 F 69 18 117/66 97 Weight Weight 73.21 kg Result Diagrams: 03/31/18 20:34 03/31/18 20:34 <Sterling Medina - Last Filed: 04/01/18 08:44> - Objective Vital Signs & Weight: Vital Signs (12 hours) Temp Pulse Resp BP BP Pulse Ox 04/01/18 07:26 97.9 F 78 20 127/65 97 04/01/18 02:11 78 18 110/56 L 96 Weight Weight 73.21 kg Result Diagrams: 03/31/18 20:34 03/31/18 20:34 <Pedro Luis Molina - Last Filed: 04/01/18 10:31> Phys Exam - Physical Examination Constitutional: NAD HEENT: PERRLA, moist MMs Pt. has poor dentition and swelling on the left side of her cheek, neck, and tongue. These areas of swelling are very painful to palpation Neck: no nodes, no JVD Respiratory: no wheezing, no rales, clear to auscultation bilateral Cardiovascular: RRR, no significant murmur, no rub Gastrointestinal: soft, non-tender, no distention, positive bowel sounds Musculoskeletal: no edema, pulses present Neurological: non-focal, normal sensation Lymphatic: no nodes Psychiatric: normal affect, A&O x 3 Skin: no rash, normal turgor <Sterling Medina - Last Filed: 04/01/18 08:44> Dx/Plan (1) Angioedema Code(s): T78.3XXA - ANGIONEUROTIC EDEMA, INITIAL ENCOUNTER Status: Acute (2) Diabetes mellitus, type 2 Status: Acute (3) Dyslipidemia Code(s): E78.5 - HYPERLIPIDEMIA, UNSPECIFIED Status: Chronic (4) Normocytic anemia Code(s): D64.9 - ANEMIA, UNSPECIFIED Status: Acute - Plan Plan: Angioedema likely 2/2 lisinopril -Prednisone -Benadryl -pepcid -DC lisinopril -Will follow up after AM medication to see if any change swelling or pain -Tylenol for pain DMII -Glucose checks -Home medications -SSI HTN -Continue home meds -DC lisinopril -Start losartan HLD -Continue home meds GERD -Pepcid Normocytic anemia -Iron level -Ferritin level -TIBC -SAADIA with occult blood Code: Full Family:none at bedside Prophylaxis: Pepcid Disposition: home today <Sterling Medina - Last Filed: 04/01/18 08:44> Attending Addendum - Attending Addendum Date/Time: 04/01/18 1015 I personally evaluated the patient and discussed the management with Dr. Medina I agree with the History, Examination, Assessment and Plan documented above with any addition or exceptions noted below. 57F admitted for suspected MARGARET-i induced angioedema. One prior episode of facial swelling three months ago but she did not stop her lisinopril at that time. Continue treatment with pepcid, prednisone, benadryl. No SOB, stridor, or labored breathing at this time. Facial swelling persists. We will continue to monitor vital signs and respiratory status. Exam shows localized tenderness over lateral jaw and buccal gingiva surrounding carous, broken tooth, suspicious for infection. Check Jaw CT to r/o abscess. Start Clindamycin to continue as OP if CT negative with stress to make dental appointment [facility]. Will need different antihypertnesive. <Pedro Luis Molina - Last Filed: 04/01/18 10:31>
[2018-04-01] MEDS ORDERED: predniSONE 20 MG TAB PO SCH (08:00)
[2018-04-01] MEDS: Famotidine 20 MG TAB PO SCH (08:28)
[2018-04-01] MEDS ORDERED: Losartan 25 MG TAB PO SCH (09:00)
[2018-04-01 09:20] LABS: Iron 53 ug/dL (50-170); Iron Binding Capacity, Total 328 mcg/dL (265-497)
[2018-04-01 10:11] LABS: CRP (Inflammatory) 1.97 mg/dL (= or < 0.5); Complement-C4 38.9 mg/dL (15-57)
[2018-04-01] MEDS: Insulin Regular 300 UNITS/3 ML VIAL SC PRN (11:40)
[2018-04-01] MEDS ORDERED: Ampicillin/Sulbactam 3 GM in Sodium Chloride 0.9% 100 ML IVPB SCH (12:00)
[2018-04-01] MEDS ORDERED: traMADol HCl 50 MG TAB PO PRN (12:19)
--- NOTE | 2018-04-01 13:54 | CT ---
CT NECK WITH IV CONTRAST: 04/01/2018 HISTORY: Left mandibular and neck swelling since yesterday. FINDINGS: There is edema and stranding seen in the submandibular space on the left with edema mainly located me dial to the submandibular gland. There are also linear areas of decreased attenuation within the lef t submandibular gland, suggesting sialadenitis. There is no calculus seen within the region of the W wu's duct. There is mild parapharyngeal edema also present on the left, which does slightly effa ce the parapharyngeal soft tissues on the left. The right submandibular gland, as well as bilateral parotid glands and the thyroid gland, demonstrate a normal CT appearance. There is also a small amount of edema within the retropharyngeal space, which likely communicates wit h the parapharyngeal edema. There is no enhancing fluid collection seen, and no enlarged lymph nodes are appreciated. There is mucosal thickening in the left maxillary antrum. The mastoid air cells are clear. There is nonspecific subcentimeter lucency seen within the C3 vertebral body, which is difficult to further c haracterize on this exam. This likely represents a benign finding. However, if the patient does hav e a history of metastatic disease, MRI of the cervical spine can be performed. IMPRESSION: 1. Edema in the left submandibular gland with adjacent fluid as well as parapharyngeal edema and flu id in the retropharyngeal space. These findings are likely attributable to sialadenitis involving th e left submandibular gland. There is no fluid collection seen to suggest an abscess. 2. No evidence of lymphadenopathy. 3. Subcentimeter lucency within the C3 vertebral body. This is overall nonspecific and is likely at tributable to a nonaggressive process, but if the patient does have a history of metastatic disease, MRI of the cervical spine can be performed for further evaluation. POS: [facility]
[2018-04-01] MEDS ORDERED: Iopamidol 370 76% 100 ML VIAL ONE (14:50)
[2018-04-01 15:49] VITALS: BP 115/59; TEMP 97.8
--- NOTE | 2018-04-02 03:59 | DIS-2 ---
DATE OF ADMISSION: 03/31/2018 DATE OF DISCHARGE: 04/01/2018 RESIDENT: Dr. Sterling Medina. ADMITTING ATTENDING: Javier Rodriguez MD DISCHARGE ATTENDING: Pedro Luis Molina M.D. CONSULTS: None. PROCEDURES: Neck CT with contrast done on 04/01 showing no signs of abscess. The CT did show signs of edema in the neck as well as left submandibular gland swelling, parapharyngeal edema, and sialoadenitis on the left. PRIMARY DIAGNOSIS: Angioedema, sialadenitis. SECONDARY DIAGNOSES: GERD, diabetes type 2, hyperlipidemia, hypertension. DISCHARGE MEDICATIONS: 1. Augmentin 875 mg p.o. b.i.d. every 7 days. 2. Prednisone 20 mg p.o. q.a.m. for 3 days. 3. Pepcid 20 mg p.o. b.i.d. for 3 days. 4. Benadryl 25 mg q.6 hours for 3 days. 5. Tramadol 50 mg p.o. q.6. p.r.n. 6. Amlodipine 5 mg p.o. daily. DISCONTINUED MEDICATIONS: Lisinopril. HISTORY OF PRESENT ILLNESS AND HOSPITAL COURSE: This is a 57-year-old female who presented to the ER with an 8-hour history of facial swelling. She states that she has had an episode of this before 3 months ago. She has been taking lisinopril for 3 years. Lisinopril was stopped and she was put on prednisone, Pepcid and Benadryl. She tolerated this well, did well overnight on the . She began to complain of left facial swelling and left tongue swelling. A CT neck with contrast was performed showed no sign of an abscess. It did show signs of edema, left submandibular gland as well as parapharyngeal edema. After this, she was started on Unasyn 3 grams and improved throughout the day and was transitioned to unasyn. She was given tramadol for her pain. The patient was discharged on the medications above, told to follow up with her primary care physician as well as with her dentist to address her poor dentition. Patient was given ER precautions. DISPOSITION: Stable. DISCHARGE INSTRUCTIONS: 1. Location: Discharge home. 2. Diet: Diabetic diet. 3. Activity: As tolerated. 4. Follow up with primary care physician in 1-2 weeks. [facility]
== END 2018-04-01 16:17 | disposition home or self-care (01) ==
LOC: ERS 11:53 → 2SW 19:28
PROVIDERS: ADMIT Family Medicine; ATTEND Family Medicine
DX: T78.3XXA Angioneurotic edema, initial encounter (principal); K11.20 Sialoadenitis, unspecified; K21.9 Gastro-esophageal reflux disease without esophagitis; E11.9 Type 2 diabetes mellitus without complications; E78.5 Hyperlipidemia, unspecified; I10 Essential (primary) hypertension; D64.9 Anemia, unspecified; Z79.899 Other long term (current) drug therapy; Z88.1 Allergy status to other antibiotic agents
CPT/HCPCS: 70491; 80048; 82274; 82728; 82962 ×2; 83540; 83550; 85025; 86140; 86160; 86161; 87070; 96361; 96365; 96375; 99285; G0378; 36415; 36416; 96374; A4216; J0295; J1200; J1815; J2930; J7050; J7506; S0028

== ENCOUNTER 2018-04-23 10:14 | Inpatient (IN) | payer MEDICARE, MEDICAID ==
[2018-04-23 11:38] LABS: Hemoglobin 9.4 g/dL (12.0-16.0); Mean Corpuscular HGB CONC 33.2 g/dL (32.0-36.0); Mean Corpuscular Hemoglobin 27.9 pg (27.0-31.0); Mean Corpuscular Volume 84.2 fL (78.0-98.0); Mean Platelet Volume 6.4 fL (7.4-10.4); Platelet Count 421 thou/uL (130-400); RBC Distribution Width 14.8 % (11.5-14.5); Red Blood Cell (RBC) Count 3.35 mill/uL (4.20-5.40); White Blood Cell (WBC) Count 18.1 thou/uL (4.8-10.8)
[2018-04-23 11:44] LABS: Bilirubin Negative (Negative); Blood, Urine Large (Negative); Clarity TURBID (Clear); Glucose, Urine (Dipstick) 500 mg/dL (Negative); Leukocyte Large (Negative); Nitrite Positive (Negative); Protein, Urine (Dipstick) 100 mg/dL (Neg-Trace); Specific Gravity, Urine 1.014 (1.002-1.036); Urobilinogen 0.2 mg/dL (0.2-1.0)
[2018-04-23 11:45] LABS: Pregnancy Test - Urine (BHCG) Negative (Negative); Pregu Control Background? CLEAR/WHITE (CLR/WHITE); Pregu Control Bar Appear? YES (CONTROL BAR); Specific Gravity 1.014 (1.002-1.036)
[2018-04-23 11:46] LABS: ALT (SGPT) 11 U/L (8-55); AST (SGOT) 15 U/L (5-34); Albumin 3.5 g/dL (3.5-5.0); Alkaline Phosphatase 176 U/L (40-150); Anion Gap 17 mmol/L (10-20); BUN (Urea Nitrogen) 13 mg/dL (9.8-20.1); Bilirubin, Total 0.4 mg/dL (0.2-1.2); Calc. Creatinine Clearance 0 mL/min (70-130); Calcium 8.8 mg/dL (7.8-10.44); Carbon Dioxide 21 mmol/L (22-29); Chloride 93 mmol/L (98-107); Estimated GFR-MDRD 34; Globulin 4.1 g/dL (2.4-3.5); Glucose 295 mg/dL (70-105); Lipase 6 U/L (8-78); Potassium 3.5 mmol/L (3.5-5.1); Protein, Total 7.6 g/dL (6.0-8.3); Sodium 127 mmol/L (136-145)
[2018-04-23 11:46] LABS: Bacteria/HPF 4+ HPF (None Seen); Hyaline Casts/LPF 0-3 HYALINE CAST LPF (0-3 Hyaline); Pathc Cast-AUWi Flag 0.27 (0-2.49); RBC/HPF GREATER THAN 50-TNTC HPF (0-3)
[2018-04-23] MEDS ORDERED: Pantoprazole 40 MG VIAL ONE (11:48)
[2018-04-23] MEDS ORDERED: Dicyclomine 20 MG TAB ONE (11:48)
[2018-04-23] MEDS ORDERED: Ondansetron ODT 4 MG TAB ONE (11:48)
[2018-04-23 11:50] LABS: Band 31 % (5-11); Eosinophils 1 % (0-10); Lymphocytes 4 % (21-51); MDiff Complete? YES; Monocytes 5 % (0-10); Neutrophil 59 % (42-75); PLT Morphology Comment Appears Increased; Polychromasia SLIGHT = 2-3 cells (100X) (0-2/hpf)
[2018-04-23 11:51] LABS: CKMB 1.4 ng/mL (0-6.6); Troponin I 0.102 ng/mL (< 0.028)
--- NOTE | 2018-04-23 13:24 | CT ---
CT ABDOMEN AND PELVIS WITH IV CONTRAST: TECHNIQUE: Multiple tomograms obtained through the abdomen and pelvis with IV contrast enhancement. INDICATION: Abdominal pain. Nausea and vomiting. Predominantly right abdominal pain. COMPARISON: Comparison is made to CT abdomen and pelvis 09/19/17. That exam revealed mild right hydroureteral nep hrosis with inflammatory stranding with mild right perinephric and periureteric stranding. FINDINGS: Lung bases appear clear with some chronic changes in the lung bases. The liver, spleen, and pancreas are unremarkable. The patient is post cholecystectomy. Adrenal gland is normal. There is again seen to the right perinephric haziness and stranding with right perinephric fluid more prominent today. There continues to be mild right hydronephrosis and dilatation of the proximal rig ht ureter. Etiology for this is not apparent by CT. There is no evidence of ureteral calculus. A m ucosal lesion should be excluded. The left kidney shows no evidence of hydronephrosis or perinephric edema; however, there is somewhat of a mottled enhancement pattern to the left kidney with some areas of cortical heterogeneity. There is a tiny nonobstructing calculus in the mid pole collecting structures measuring 1-2 mm. No left h ydronephrosis. The urinary bladder is mildly distended and there is a suggestion of mild bladder wall thickening. Small bowel loops are normal caliber. Mild nonspecific mural thickening of the right colon. Transverse colon is nondistended and poorly ev aluated. Images through the pelvis show evidence of hysterectomy. Aorta is normal caliber. Nonspecific peria ortic lymph nodes. These appear stable. IMPRESSION: 1. Increasing right perinephric stranding and edema with mild right hydronephrosis and proximal righ t hydroureter. 2. Mild heterogeneous enhancement of both kidneys. There is also a suggestion of urinary bladder wa ll thickening. Pyelonephritis with cystitis are considerations. Given persistence of the right side findings since September 2017, recommend urologic consultation and consider retrograde study to better evaluate the right collecting structures. 3. Nonspecific mural thickening of the right colon which is suboptimally evaluated due to poor diste ntion. POS: [facility]
[2018-04-23] MEDS ORDERED: Lorazepam 2 MG/ML VIAL ONE (13:28)
[2018-04-23] MEDS ORDERED: cefTRIAXone\\ROCEPHIN 2 GM VIAL ONE (13:28)
[2018-04-23] MEDS ORDERED: Ketorolac Tromethamine 30 MG/ML VIAL ONE (13:28)
[2018-04-23] MEDS ORDERED: ISOVUE-370 76%-LOCM 1 ML ONE (13:35)
[2018-04-23] MEDS ORDERED: cefTRIAXone\\ROCEPHIN 1 GM in Sodium Chloride 0.9% 100 ML IVPB SCH (14:00)
[2018-04-23] MEDS ORDERED: Ondansetron ODT 4 MG TAB PO PRN (16:15)
[2018-04-23] MEDS ORDERED: Bisacodyl 5 MG TAB PO PRN (16:15)
[2018-04-23] MEDS ORDERED: Ondansetron HCl/PF 4 MG/2 ML Vial IVP PRN (16:15)
[2018-04-23 16:17] VITALS: BMI 25.7
[2018-04-23 16:32] LABS: Albumin 3.1 g/dL (3.5-5.0); Anion Gap 12 mmol/L (10-20); BUN (Urea Nitrogen) 13 mg/dL (9.8-20.1); BUN/Creatinine Ratio 9.09; Calc. Creatinine Clearance 50 mL/min (70-130); Calcium 8.1 mg/dL (7.8-10.44); Carbon Dioxide 22 mmol/L (22-29); Chloride 97 mmol/L (98-107); Estimated GFR-MDRD 38; Glucose 367 mg/dL (70-105); Phosphorus 2.7 mg/dL (2.3-4.7); Potassium 4.1 mmol/L (3.5-5.1); Sodium 127 mmol/L (136-145)
[2018-04-23] MEDS: Sodium Chloride 0.9% 1,000 ML IV SCH (16:44)
[2018-04-23] MEDS ORDERED: Dextrose 50% Abboject 50 ML SYRINGE SLOW IVP PRN (17:02)
[2018-04-23] MEDS ORDERED: Dextrose 5% in Water 1,000 ML IV PRN (17:02)
[2018-04-23] MEDS: HumaLOG 300 UNITS/3 ML VIAL SC PRN ×2 (17:25→21:56)
[2018-04-23 18:31] LABS: Lactic Acid 1.9 mmol/L (0.5-2.2)
[2018-04-23 18:36] LABS: Troponin I 0.156 ng/mL (< 0.028)
[2018-04-23 18:38] LABS: Osmolality, Urine 275 mOsm/kg (300-900)
[2018-04-23 18:41] LABS: Sodium, Urine 37 mmol/L (Not Available)
--- NOTE | 2018-04-23 18:55 | HP ---
CHIEF COMPLAINT: Abdominal pain. HISTORIAN: The patient, kirby. HISTORY OF PRESENT ILLNESS: This is a 57-year-old female with past medical history of hypertension, hyperlipidemia, diabetes mellitus type 2, chronic back pain and GERD presenting with abdominal pain. Per the patient, her abdominal pain started yesterday, the day prior to admission. The patient states that she had vomiting around the same time that the pain started. Pain was radiating from the back, right-sided flank all the way to the suprapubic region. Pain was 10/10 on the pain scale and the cause of the pain was dull in nature. The patient stated that nothing seemed to help with the pain. The patient denied any headaches, shortness of breath, chest pain, palpitations; however, admits to having nausea, vomiting, diffuse abdominal pain, right flank pain, and diarrhea. Upon further questioning, the patient stated that she has not had any liquid diarrhea on the day of admission. REVIEW OF SYSTEMS: Positive for abdominal pain, diarrhea, nausea, vomiting, and negative for all other ones that have been stated in the HPI has been negative. PAST MEDICAL HISTORY: Please refer to the HPI for past medical history as it has been stated in the HPI. FAMILY HISTORY: Per the patient, mother and father had some heart problems. PAST SURGICAL HISTORY: The patient had surgical history of appendectomy, cholecystectomy, and hysterectomy. PSYCHIATRIC HISTORY: Patient states that she has history of anxiety and depression. SOCIAL HISTORY: The patient states that she is a former smoker. She has been smoking for a long time, but she quit past 2 years ago. Patient lives at home with her aunt and patient states that she has some children. Patient denies alcohol use. The patient denies illicit drug use. ALLERGIES: MARGARET INHIBITORS, LEVAQUIN and LEVOFLOXACIN. CURRENT MEDICATIONS: 1. Patient is on duloxetine 30 mg, metformin 500 b.i.d. 2. Atorvastatin 20 mg. 3. Lyrica 150 mg. 4. Glipizide 10 mg b.i.d. 5. Amlodipine 5 mg daily. PHYSICAL EXAMINATION: VITAL SIGNS: In the ED, the patient's blood pressure was 140/72, pulse of 112, respiratory rate of 24, temperature of 98.1. On admission, patient's blood pressure was around 103/48, pulse of 91, respiratory rate of 20 and patient was in severe pain at that time. GENERAL: Patient was found in her bed tossing and turning. Patient seemed to be in apparent pain. However, patient is not in any acute respiratory distress. HEENT: Normocephalic, atraumatic. Pupils are equally round and reactive to light. Extraocular muscles are intact. No scleral icterus. Conjunctivae normal. Mucous membranes are moist. NECK: No JVD. Trachea is midline. No lymphadenopathy is noted. LUNGS: Clear to auscultation bilaterally. No wheezing, no rales, no rhonchi is appreciated. CARDIOVASCULAR: S1, S2, regular rate and rhythm. No murmurs, no gallops or rubs appreciated. ABDOMEN: Patient has no rebound tenderness; however, patient did have some tenderness in the suprapubic region. Patient also has positive CVA at the right flank and mild CVA tenderness at the left flank. No ecchymosis. No peritoneal signs noted. Positive bowel sounds in all quadrants. EXTREMITIES: Patient having 5/5 upper extremity strength. Good radial pulses bilaterally, 5/5 lower extremity strength. Good dorsalis pedis pulses bilaterally. PSYCHIATRIC: Normal affect, alert and oriented x3. SKIN: Warm, dry and intact. No rashes are appreciated. LABORATORY DATA: WBC is 18.1, hemoglobin is 9.4, hematocrit is 28.2, platelets are 421, bands of 31. Chemistry: Sodium 127, potassium 3.5, chloride 93, carbon dioxide 21, anion gap of 17, creatinine of 1.54, lactic acid of 2.4, glucose of 295, alkaline phosphatase of 176. Troponins of 0.102. Urinalysis shows urine nitrite that is positive and large leukoesterase. IMAGING DATA: CT abdomen and pelvis shows increasing right perinephric stranding and edema with mild right hydronephrosis, proximal right hydroureter, mild heterogenous enhancement of both kidneys. There is also urinary bladder wall thickening. So, basically there is pyelonephritis with cystitis. ASSESSMENT AND PLAN: We have a 57-year-old female being admitted for: 1. Pyelonephritis with cystitis confirmed on CT of the abdomen and pelvis. The patient has been started on ceftriaxone at this time. We will continue ceftriaxone. We will do IV fluids and we will also do IV ceftriaxone. We have Urology on consult due to bilateral hydronephrosis. 2. Sepsis secondary to pyelonephritis with cystitis. At this point, we will repeat lactic acid. We will continue fluids. We will continue antibiotics. Patient's vitals are currently stable. The patient has a white count of 18,000 , therefore, we will continue antibiotics and trend white count in the a.m. 3. Acute kidney injury. We have ordered renal function test. We will follow up on patient's urine spot creatinine and urine spot sodium. We will give patient IV hydration. We will follow up on bladder scan and renal ultrasound if ordered. Nephrology on consult. We will follow up with the [facility] recommendations. 4. Hypovolemic hyponatremia. The patient is currently dry. We will continue IV fluids. We will follow up sodium levels in the a.m. 5. Diabetes mellitus type 2. We will continue patient on her home dose of diabetes medications. We will do Insulin sliding scale. 6. Hypertension. We will continue patient on home dose of hypertensive medications. 7. Hyperlipidemia. Continue patient on statin. 8. History of GERD. We will continue the patient on Pepcid. 9. Deep venous thrombosis/gastrointestinal prophylaxis. We will do Lovenox and Pepcid. MTDD
[2018-04-23] MEDS ORDERED: Sodium Chloride 0.9% 1,000 ML IV SCH (20:00)
[2018-04-23] MEDS: glipiZIDE 10 MG TAB PO SCH (20:04)
[2018-04-23] MEDS: Atorvastatin Calcium 20 MG TAB PO SCH (20:04)
[2018-04-23] MEDS: Famotidine 20 MG TAB PO SCH (20:04)
[2018-04-23] MEDS: Pregabalin 75 MG CAP PO SCH (20:05)
[2018-04-23] MEDS: DULoxetine 30 MG CAP PO SCH (21:50)
--- NOTE | 2018-04-23 22:26 | CON ---
DATE OF CONSULTATION: 04/23/2018 CHIEF COMPLAINT: Right flank pain, hydronephrosis. HISTORY OF PRESENT ILLNESS: Ms. Lucas is a 57-year-old female with hypertension, diabetes mellitus admitted to the hospital with acute onset of abdominal pain. She states that 3 days prior to admissi on, she began developing some dysuria. She then developed some lower abdominal pain with some radiat ion to the right flank. CT scan was performed that demonstrates some mild right hydronephrosis and u pper right hydroureter. The CT scan is completely unchanged from a CT scan performed in September of t his year. She states beginning in February of this year, she has been having trouble with persistent uri nary tract infections. She states that she has been treated multiple times over the last 7 or 8 anila hs for urinary tract infections. When the antibiotics are completed, the infection returns. Prior t o this time, she denies any other urologic issues. Typical symptoms include dysuria. She typically does not get sick as she did this time. At this time, she developed fever, nausea, and vomiting. PAST MEDICAL HISTORY: Diabetes mellitus, hypertension, gastroesophageal reflux disease, hyperlipidem ia, hypertension. PAST SURGICAL HISTORY: Appendectomy, cholecystectomy, hysterectomy. SOCIAL HISTORY: She quit smoking cigarettes, although she does have a history of smoking in the past . She denies excessive alcohol use, denies drug use. MEDICATIONS: Duloxetine, metformin, atorvastatin, Lyrica, glipizide, amlodipine. ALLERGIES: No known drug allergies. FAMILY HISTORY: Noncontributory. REVIEW OF SYSTEMS: Respiratory: She denies any shortness of breath. Cardiovascular: She denies ch est pain or palpitations. Gastrointestinal: Please see history of present illness. She has abdomin al pain and has had diarrhea and nausea and vomiting over the last several days. Genitourinary: Ple ase see history of present illness. Neurologic: Denies focal weakness or gait changes. Psychiatric : Denies emotional lability. PHYSICAL EXAMINATION: VITAL SIGNS: Temperature 98, pulse 93, blood pressure 90/52, respiratory rate 20. HEENT: Normocephalic, atraumatic. GENERAL: She appears older than her stated age. CHEST: Clear to auscultation. CARDIOVASCULAR: No murmurs. ABDOMEN: Soft, nontender, no peritoneal signs. EXTREMITIES: No edema. PELVIC: Exam deferred. LABORATORY DATA: White count 18.1, hemoglobin 9.4, hematocrit 28.4, platelet count 421. Chemistry: Creatinine 1.43. Urinalysis demonstrates 4+ bacteria. IMPRESSION: Ms. Lucas is a 57-year-old female who began having urinary tract infections in September of this year. At that time, she underwent CT scan that was normal other than some mild right-sided h ydronephrosis and upper right hydroureter without any stone. She was treated with antibiotic therapy at that time and discharged home. She states that she has had multiple courses of antibiotics since that time and that infections returned once her antibiotics are completed. She presented this time with fever and chills. Repeat CT scan demonstrates no changes in comparison to the scan, back in Sep. RECOMMENDATIONS: 1. IV antibiotics. 2. Await urine culture results. 3. Once she has been appropriately covered with culture specific antibiotic therapy. Further evalua tion with contrast examination by CT, IVP, or retrograde pyelography will be performed.
--- NOTE | 2018-04-23 23:02 | ULT ---
RENAL ULTRASOUND: 04/23/18 INDICATION: Recurrent urinary tract infection, pyelonephritis. FINDINGS: There is mild prominence of the right renal pelvis, similar in volume to the preceding CT exam. Other acosta, no overt hydronephrosis of the kidneys. There is a focus of increased echogenicity of the left kidney compatible with nephrolithiasis. Perinephric fluid is present on the right. Urinary bladder is mildly distended. Ureteral jets are elicited bilaterally. IMPRESSION: Mild prominence of the right renal pelvis, as was depicted on preceding CT exam. Left nephrolithiasis. POS: [facility]
--- NOTE | 2018-04-23 23:29 | CON ---
DATE OF CONSULTATION: 04/23/2018 CONSULTING PHYSICIAN: Jalen Jimenez M.D. REQUESTING PHYSICIAN: Agustin Rosas DO REASON FOR CONSULTATION: Pyelonephritis. IMPRESSION: 1. Pyelonephritis, somewhat recurrent in this patient as per history. 2. Acute kidney injury. 3. Hyponatremia, likely related to pyelonephritis/poor p.o. intake. PLAN: 1. Given the fact that this urinary tract infections/pyelonephritis. This has been recurrent. We wi ll go ahead and get the imaging studies of the urinary system to rule out any structural abnormality. 2. Broad spectrum antibiotics. Unfortunately, this patient seems to be allergic to LEVAQUIN. The refore, ciprofloxacin could not be used though this would have preferred to be added to the ceftriaxo ne. 3. Renally dose medications for low GFR. 4. Monitor this patient closely, especially this patient can easily get going to full blown sepsis. 5. Urine chemistry to ensure what kind of hyponatremia this patient is dealing with. HISTORY: This is a 57-year-old female patient who presented with abdominal pain, diagnosed with pyel onephritis. According to the patient, this has been on a recurrent basis. Pain described as 10 out of 10, associated with poor p.o. intake. At this time of history taking, the patient seems to be in some physical distress. PAST MEDICAL HISTORY: Significant for, hypertension, dyslipidemia, type 2 diabetes, chronic back davian n, reflux disease. MEDICATIONS: Reviewed and as documented on [facility]. FAMILY HISTORY: No family history of kidney disease. SOCIAL HISTORY: The patient has been smoking for quite some time, did discontinue about 2 years ago. Denies illicit drug use. ALLERGIES: MARGARET inhibitors and LEVAQUIN. CURRENT MEDICATIONS: Reviewed as documented on [facility]. REVIEW OF SYSTEMS: As documented in the body of the history. PHYSICAL EXAMINATION: GENERAL: The patient was found to be in significant physical distress. VITAL SIGNS: Afebrile with temperature 98.4, pulse 95, respiratory rate 24, O2 sat 98% with a blood pressure 96/46. HEENT: Unremarkable. Moist oral mucosa. NECK: Supple, No conjunctival injection or icterus. CARDIOVASCULAR SYSTEM: First and second heart sounds were heard. RESPIRATORY SYSTEM: Clear to auscultation. DIGESTIVE SYSTEM: Revealed some abdominal tenderness. EXTREMITIES: No peripheral edema. SKIN: No new gross rash. LYMPHATICS: No peripheral lymphadenopathy. SUMMARY: A 57-year-old female patient who presented here with abdominal pain, diagnosed with pyelone phritis. Thank you for this consultation. We will follow with you. I will go ahead and discontinue the antih ypertensive in this patient for now.
[2018-04-23] MEDS: Acetaminophen 325 MG TAB PO PRN (23:50)
[2018-04-24] MEDS: Sodium Chloride 0.9% 1,000 ML IV SCH ×3 (03:08→21:59)
[2018-04-24] MEDS: HumaLOG 300 UNITS/3 ML VIAL SC PRN ×3 (05:48→16:19)
[2018-04-24 05:49] LABS: #Eosinphils 0.4 thou/uL (0.0-0.7); #Lymphocytes 2.5 thou/uL (1.20-3.40); #Monocytes 1.6 thou/uL (0.11-0.59); #Neutrophils 14.7 thou/uL (1.40-6.50); %Basophils 0.1 % (0.0-1.0); %Eosinophils 1.9 % (0.0-10.0); %Monocytes 8.5 % (0.0-10.0); %Neutrophils 76.5 % (42.0-75.0); Hemoglobin 8.3 g/dL (12.0-16.0); Mean Corpuscular Hemoglobin 27.2 pg (27.0-31.0); Mean Corpuscular Volume 85.1 fL (78.0-98.0); Mean Platelet Volume 6.4 fL (7.4-10.4); Platelet Count 401 thou/uL (130-400); RBC Distribution Width 15.1 % (11.5-14.5); Red Blood Cell (RBC) Count 3.04 mill/uL (4.20-5.40); White Blood Cell (WBC) Count 19.2 thou/uL (4.8-10.8)
[2018-04-24 06:18] LABS: ALT (SGPT) 9 U/L (8-55); AST (SGOT) 14 U/L (5-34); Albumin 3.2 g/dL (3.5-5.0); Alkaline Phosphatase 137 U/L (40-150); Anion Gap 14 mmol/L (10-20); BUN (Urea Nitrogen) 13 mg/dL (9.8-20.1); Bilirubin, Total Less than 0.2 mg/dL (0.2-1.2); Calc. Creatinine Clearance 48 mL/min (70-130); Calcium 8.3 mg/dL (7.8-10.44); Carbon Dioxide 22 mmol/L (22-29); Chloride 104 mmol/L (98-107); Estimated GFR-MDRD 36; Globulin 3.9 g/dL (2.4-3.5); Glucose 187 mg/dL (70-105); Potassium 4.5 mmol/L (3.5-5.1); Protein, Total 7.1 g/dL (6.0-8.3); Sodium 135 mmol/L (136-145)
[2018-04-24] MEDS: Acetaminophen 325 MG TAB PO PRN ×3 (07:01→23:36)
[2018-04-24] MEDS ORDERED: Meropenem 1 GM in Sodium Chloride 0.9% 100 ML IVPB SCH (07:30)
[2018-04-24] MEDS: MEROPENEM 1 GM/50 ML 1 GM in Premix Bag 1 BAG IVPB SCH ×2 (08:33→16:07)
[2018-04-24] MEDS: Famotidine 20 MG TAB PO SCH (08:46)
[2018-04-24] MEDS: DULoxetine 30 MG CAP PO SCH ×2 (08:46→22:00)
[2018-04-24] MEDS: Enoxaparin Sodium 30 MG/0.3 ML SYRINGE SC SCH (08:46)
[2018-04-24] MEDS: Pregabalin 75 MG CAP PO SCH ×2 (08:47→22:01)
[2018-04-24] MEDS: glipiZIDE 10 MG TAB PO SCH ×2 (08:47→16:13)
[2018-04-24] MEDS ORDERED: Amlodipine 5 MG TAB PO SCH (09:00)
[2018-04-24] MEDS ORDERED: Diabetic Tussin 200 MG/10 ML UDCUP PO PRN (13:52)
[2018-04-24] MEDS: HYDROcodone/Acetaminophen 5/325 mg Tablet PO PRN ×2 (15:10→19:08)
--- NOTE | 2018-04-24 17:00 | PDOC.PN ---
- Subjective Encounter Start Date: 04/24/18 Encounter Start Time: 09:00 Patient seen and examined for Sepsis. Feels weak. No new complaints. No overnight events. No cough/SOB. Rt flank pain. - Objective Resuscitation Status: Resuscitation Status FULL:Full Resuscitation MAR Reviewed: Yes Vital Signs & Weight: Vital Signs (12 hours) Temp Pulse Resp BP BP Pulse Ox 04/24/18 16:13 98.5 F 101 H 22 H 115/56 L 93 L 04/24/18 11:32 98.1 F 96 20 97/52 L 96 04/24/18 08:37 98.3 F 100 20 97 04/24/18 08:00 101.4 F H 118 H 21 H 97 04/24/18 07:11 101.4 F H 118 H 21 H 114/50 L 97 04/24/18 05:27 99.8 F H 117 H 24 H 118/56 L 93 L Weight Weight 164 lb 4.8 oz I&O: 04/23/18 04/24/18 04/25/18 06:59 06:59 06:59 Intake Total 1400 2162 Output Total 2400 450 Balance -1000 1712 Result Diagrams: 04/24/18 05:26 04/24/18 05:26 Additional Labs: Accuchecks 04/24/18 04/24/18 04/24/18 16:12 11:17 05:44 POC Glucose 312 H 335 H 199 H 04/23/18 04/23/18 21:56 17:22 POC Glucose 445 H 427 H Microbiology 04/23/18 13:26 Venous blood - Right Hand Blood Culture - Preliminary Gram Negative Ashwin 04/23/18 13:26 Venous blood - Left Hand Blood Culture - Preliminary Citrobacter species 04/23/18 11:24 Urine voided Urine Culture - Preliminary Gram Negative Ashwin Radiology Reviewed by me: Yes (CT abd - No renal calculi) Phys Exam - Physical Examination Pt in distress due to Rt flank pain Respiratory: no wheezing, no rales, no rhonchi, clear to auscultation bilateral Cardiovascular: RRR, no rub no heaves/pulsations Gastrointestinal: soft, no distention, positive bowel sounds Rt flank tenderness, No rebound Musculoskeletal: no edema Neurological: non-focal, normal sensation, moves all 4 limbs Psychiatric: normal affect, A&O x 3 Dx/Plan - Plan DVT proph w/lovenox, DVT proph w/SCDs IMPRESSION: 1. Sepsis with acute organ dysfunction due to Acute Pyelonephritis 2. DM2 - uncontrolled 3. Acute pain due to #1 4. [place] on CKD 3/Hyponatremia - improving 5. Elevated troponins due to sepsis PLAN: Change Atbx to Meropenem due to persistent fever ?ESBL Add NPH Cont sliding scale with Glipizide Cont IVF AM labs Cont current meds as below Review of Systems - Review of Systems Respiratory: negative: Cough, Dry, Shortness of Breath, Hemoptysis, SOB with Excertion, Pleuritic Pain, Sputum, Wheezing Cardiovascular: negative: chest pain, palpitations, orthopnea, paroxysmal nocturnal dyspnea, edema, light headedness, other - Medications/Allergies Allergies/Adverse Reactions: Allergies Allergy/AdvReac Type Severity Reaction Status Date / Time MARGARET Inhibitors Allergy Severe Swollen Verified 04/23/18 16:23 Lips levofloxacin [From Levaquin] Allergy Hives Verified 04/23/18 16:23 Medications: Current Medications Acetaminophen (Tylenol) 650 mg PO Q4H PRN PRN Reason: Headache/Fever or Pain Last Admin: 04/24/18 14:25 Dose: 650 mg Hydrocodone Bitart/Acetaminophen ([place] 5/325) 1 tab PO Q4H PRN PRN Reason: Moderate Pain (4-6) Last Admin: 04/24/18 15:10 Dose: 1 tab Atorvastatin Calcium (Lipitor) 20 mg PO HS [facility] Last Admin: 04/23/18 20:04 Dose: 20 mg Bisacodyl (Dulcolax) 10 mg PO DAILYPRN PRN PRN Reason: Constipation Dextrose/Water (Dextrose 50%) 25 gm SLOW IVP PRN PRN PRN Reason: Hypoglycemia Duloxetine HCl (Cymbalta) 30 mg PO BID [facility] Last Admin: 04/24/18 08:46 Dose: 30 mg Enoxaparin Sodium (Lovenox) 30 mg SC 0900 [facility] Last Admin: 04/24/18 08:46 Dose: 30 mg Famotidine (Pepcid) 20 mg PO 0900 [facility] Glipizide (Glucotrol) 10 mg PO BID-AC [facility] Last Admin: 04/24/18 16:13 Dose: 10 mg Glucagon (Glucagon) 1 mg IM PRN PRN PRN Reason: Hypoglycemia Guaifenesin (Mucinex) 600 mg PO Q12HR [facility] Guaifenesin (Robitussin Sf) 200 mg PO Q4H PRN PRN Reason: Cough Last Admin: 04/24/18 15:09 Dose: 200 mg Sodium Chloride (Normal Saline 0.9%) 1,000 mls @ 125 mls/hr IV .Q8H [facility] Last Admin: 04/24/18 12:25 Dose: 1,000 mls Dextrose/Water (D5w) 1,000 mls @ 0 mls/hr IV .Q0M PRN PRN Reason: Hypoglycemia Meropenem 1 gm/ Device 50 mls @ 100 mls/hr IVPB Q8H [facility] Last Admin: 04/24/18 16:07 Dose: 50 mls Insulin Human Lispro (Humalog) 0 units SC .MILD SLIDING SCALE PRN PRN Reason: Mild Correctional Scale Last Admin: 04/24/18 16:19 Dose: 5 unit Insulin Human NPH (Humulin N) 10 unit SC BID [facility] Morphine Sulfate (Morphine) 2 mg IVP Q2H PRN PRN Reason: Moderate Pain (4-6) Last Admin: 04/24/18 14:27 Dose: 2 mg Ondansetron HCl (Zofran Odt) 4 mg PO Q6H PRN PRN Reason: Nausea/Vomiting Ondansetron HCl (Zofran) 4 mg IVP Q6H PRN PRN Reason: Nausea/Vomiting Pregabalin (Lyrica) 150 mg PO BID [facility] Last Admin: 04/24/18 08:47 Dose: 150 mg Sodium Chloride (Flush - Normal Saline) 10 ml IVF PRN PRN PRN Reason: Saline Flush Last Admin: 04/23/18 17:18 Dose: 10 ml
[2018-04-24] MEDS: Atorvastatin Calcium 20 MG TAB PO SCH (22:00)
[2018-04-24] MEDS: guaiFENesin ER 600 MG TAB PO SCH (22:00)
[2018-04-24] MEDS: NPH, Human Insulin Isophane 300 UNIT/3 ML VIAL SC SCH (22:07)
--- NOTE | 2018-04-24 23:34 | PRG ---
DATE OF SERVICE: 04/24/2018 SUBJECTIVE: The patient was seen and examined, much improved today and noted with the following kylie l signs. OBJECTIVE: VITAL SIGNS: Afebrile with temperature 98.5, pulse 96, respirations of 20, O2 sat 96% with blood pre ssure of 97/52. HEENT: Unremarkable. CARDIOVASCULAR SYSTEM: First and heart sounds were heard. RESPIRATORY SYSTEM: Clear to auscultation. DIGESTIVE SYSTEM: Revealed a benign abdomen. EXTREMITIES: No peripheral edema. SKIN: No new gross rash. LYMPHATICS: No peripheral lymphadenopathy. IMPRESSION: 1. Acute kidney injury. 2. Hyponatremia, improved. 3. Urinary tract infections/pyelonephritis responded to treatment. PLAN: 1. We will continue current renal supportive measures. 2. Further management to be dependent on the clinical course.
[2018-04-25] MEDS: MEROPENEM 1 GM/50 ML 1 GM in Premix Bag 1 BAG IVPB SCH ×2 (00:40→08:08)
[2018-04-25 05:24] LABS: #Eosinphils 0.5 thou/uL (0.0-0.7); #Lymphocytes 2.1 thou/uL (1.20-3.40); #Monocytes 0.9 thou/uL (0.11-0.59); #Neutrophils 8.9 thou/uL (1.40-6.50); %Basophils 0.2 % (0.0-1.0); %Lymphocytes 16.9 % (21.0-51.0); %Monocytes 7.4 % (0.0-10.0); %Neutrophils 71.6 % (42.0-75.0); Hemoglobin 7.8 g/dL (12.0-16.0); Mean Corpuscular Volume 84.8 fL (78.0-98.0); Platelet Count 365 thou/uL (130-400); RBC Distribution Width 14.9 % (11.5-14.5); Red Blood Cell (RBC) Count 2.79 mill/uL (4.20-5.40); White Blood Cell (WBC) Count 12.4 thou/uL (4.8-10.8)
[2018-04-25 05:43] LABS: Anion Gap 13 mmol/L (10-20); BUN (Urea Nitrogen) 7 mg/dL (9.8-20.1); Calc. Creatinine Clearance 61 mL/min (70-130); Carbon Dioxide 23 mmol/L (22-29); Chloride 106 mmol/L (98-107); Estimated GFR-MDRD 47; Glucose 162 mg/dL (70-105); Magnesium 1.4 mg/dL (1.6-2.6); Potassium 3.8 mmol/L (3.5-5.1); Sodium 138 mmol/L (136-145)
[2018-04-25] MEDS: Sodium Chloride 0.9% 1,000 ML IV SCH ×2 (06:31→16:37)
[2018-04-25] MEDS: HYDROcodone/Acetaminophen 5/325 mg Tablet PO PRN ×4 (08:06→20:43)
[2018-04-25] MEDS: glipiZIDE 10 MG TAB PO SCH ×2 (08:08→16:28)
[2018-04-25] MEDS: Famotidine 20 MG TAB PO SCH (08:08)
[2018-04-25] MEDS: guaiFENesin ER 600 MG TAB PO SCH ×2 (08:08→20:43)
[2018-04-25] MEDS: Enoxaparin Sodium 30 MG/0.3 ML SYRINGE SC SCH (08:08)
[2018-04-25] MEDS: DULoxetine 30 MG CAP PO SCH ×2 (08:08→20:42)
[2018-04-25] MEDS ORDERED: Magnesium 2 GM/NS 0.9% 100 ML 2 GM in Premix Bag 1 BAG IVPB SCH (08:30)
[2018-04-25] MEDS: Pregabalin 75 MG CAP PO SCH ×2 (08:30→21:33)
[2018-04-25] MEDS: cefTRIAXone\\ROCEPHIN 2 GM in Sodium Chloride 0.9% 100 ML IVPB SCH (09:20)
[2018-04-25] MEDS: NPH, Human Insulin Isophane 300 UNIT/3 ML VIAL SC SCH (09:44)
--- NOTE | 2018-04-25 17:43 | PRG ---
DATE OF SERVICE: 04/25/2018 SUBJECTIVE: The patient was seen and examined, is feeling better. OBJECTIVE: VITAL SIGNS: Temperature of 100.1, pulse 111, respiratory rate 18, blood pressure 115/53. HEENT: Unremarkable. CARDIOVASCULAR SYSTEM: First and second heart sounds were heard. RESPIRATORY SYSTEM: Clear to auscultation. DIGESTIVE SYSTEM: Revealed a benign abdomen with positive bowel sounds. EXTREMITIES: No peripheral edema. SKIN: No new gross rash. LYMPHATICS: No peripheral lymphadenopathy. IMPRESSION: 1. Pyelonephritis responding to antibiotics. 2. Hyponatremia, resolved. 3. Acute kidney injury, much improved. PLAN: 1. We will continue renally dosing all medications. 2. Avoid potentially nephrotoxic agents. 3. Further management will be dependent on the clinical course.
[2018-04-25] MEDS: Fioricet 325/50/40 mg Tablet PO PRN (18:41)
--- NOTE | 2018-04-25 20:18 | PDOC.PN ---
- Subjective Encounter Start Date: 04/25/18 Encounter Start Time: 08:30 Patient seen and examined for Sepsis. Pain still uncontrolled. No new complaints. No overnight events - Objective Resuscitation Status: Resuscitation Status FULL:Full Resuscitation MAR Reviewed: Yes Vital Signs & Weight: Weight Weight 164 lb 4.8 oz I&O: 04/24/18 04/25/18 04/26/18 06:59 06:59 06:59 Intake Total 1400 4637 2460 Output Total 2400 2350 Balance -1000 2287 2460 Result Diagrams: 04/25/18 05:12 04/25/18 05:12 Additional Labs: Accuchecks 04/25/18 04/25/18 04/24/18 16:31 11:48 21:56 POC Glucose 255 H 225 H 199 H Phys Exam - Physical Examination Constitutional: NAD Respiratory: no wheezing, no rhonchi Cardiovascular: RRR, no rub Gastrointestinal: soft, positive bowel sounds flank tenderness Musculoskeletal: no edema Dx/Plan - Plan DVT proph w/SCDs IMPRESSION: 1. Sepsis with acute organ dysfunction due to Acute Pyelonephritis due to Citrobacter with bacteremia 2. DM2 - uncontrolled 3. Acute pain due to #1 4. [place] on CKD 3/Hyponatremia - improving 5. Elevated troponins due to sepsis 6. Hypomagnesemia PLAN: Change Atbx to Ceftriaxone Cont sliding scale with Glipizide AM labs Cont current meds as below Replace Magnesium Cont to monitor Change Morphine to Q4 and increase [place] dose Laboratory Tests 04/25/18 05:12 Magnesium 1.4 L Review of Systems - Review of Systems Respiratory: negative: Cough, Dry, Shortness of Breath, Hemoptysis, SOB with Excertion, Pleuritic Pain, Sputum, Wheezing Cardiovascular: negative: chest pain, palpitations, orthopnea, paroxysmal nocturnal dyspnea, edema, light headedness, other - Medications/Allergies Allergies/Adverse Reactions: Allergies Allergy/AdvReac Type Severity Reaction Status Date / Time MARGARET Inhibitors Allergy Severe Swollen Verified 04/23/18 16:23 Lips levofloxacin [From Levaquin] Allergy Hives Verified 04/23/18 16:23 Medications: Current Medications Acetaminophen (Tylenol) 650 mg PO Q4H PRN PRN Reason: Headache/Fever or Pain Last Admin: 04/24/18 23:36 Dose: 650 mg Acetaminophen/Butalbital/Caffeine (Fioricet) 1 tab PO Q6H PRN PRN Reason: Headache Stop: 04/30/18 10:24 Last Admin: 04/25/18 18:41 Dose: 1 tab Hydrocodone Bitart/Acetaminophen ([place] 5/325) 1 tab PO Q4H PRN PRN Reason: Moderate Pain (4-6) Last Admin: 04/25/18 08:06 Dose: 1 tab Hydrocodone Bitart/Acetaminophen ([place] 5/325) 2 tab PO Q4H PRN PRN Reason: Severe Pain (7-10) Last Admin: 04/25/18 16:33 Dose: 2 tab Atorvastatin Calcium (Lipitor) 20 mg PO HS [facility] Last Admin: 04/24/18 22:00 Dose: 20 mg Bisacodyl (Dulcolax) 10 mg PO DAILYPRN PRN PRN Reason: Constipation Dextrose/Water (Dextrose 50%) 25 gm SLOW IVP PRN PRN PRN Reason: Hypoglycemia Duloxetine HCl (Cymbalta) 30 mg PO BID [facility] Last Admin: 04/25/18 08:08 Dose: 30 mg Enoxaparin Sodium (Lovenox) 30 mg SC 0900 [facility] Last Admin: 04/25/18 08:08 Dose: 30 mg Famotidine (Pepcid) 20 mg PO 0900 [facility] Last Admin: 04/25/18 08:08 Dose: 20 mg Glipizide (Glucotrol) 20 mg PO BID-AC [facility] Last Admin: 04/25/18 16:28 Dose: 20 mg Glucagon (Glucagon) 1 mg IM PRN PRN PRN Reason: Hypoglycemia Guaifenesin (Mucinex) 600 mg PO Q12HR [facility] Last Admin: 04/25/18 08:08 Dose: 600 mg Guaifenesin (Robitussin Sf) 200 mg PO Q4H PRN PRN Reason: Cough Last Admin: 04/24/18 15:09 Dose: 200 mg Sodium Chloride (Normal Saline 0.9%) 1,000 mls @ 125 mls/hr IV .Q8H [facility] Last Admin: 04/25/18 16:37 Dose: 1,000 mls Dextrose/Water (D5w) 1,000 mls @ 0 mls/hr IV .Q0M PRN PRN Reason: Hypoglycemia Ceftriaxone Sodium 2 gm/ (Sodium Chloride) 100 mls @ 200 mls/hr IVPB Q24HR [facility] Last Admin: 04/25/18 09:20 Dose: 100 mls Insulin Human Lispro (Humalog) 0 units SC .MILD SLIDING SCALE PRN PRN Reason: Mild Correctional Scale Last Admin: 04/24/18 16:19 Dose: 5 unit Morphine Sulfate (Morphine) 2 mg IVP Q4H PRN PRN Reason: Severe Pain (7-10) Ondansetron HCl (Zofran Odt) 4 mg PO Q6H PRN PRN Reason: Nausea/Vomiting Ondansetron HCl (Zofran) 4 mg IVP Q6H PRN PRN Reason: Nausea/Vomiting Pregabalin (Lyrica) 150 mg PO BID [facility] Last Admin: 04/25/18 08:30 Dose: 150 mg Sodium Chloride (Flush - Normal Saline) 10 ml IVF PRN PRN PRN Reason: Saline Flush Last Admin: 04/24/18 22:10 Dose: 10 ml
[2018-04-25] MEDS: Atorvastatin Calcium 20 MG TAB PO SCH (20:42)
[2018-04-25] MEDS: Senokot S 8.6-50 MG TAB PO SCH (21:33)
[2018-04-25] MEDS: Acetaminophen 325 MG TAB PO PRN (21:33)
[2018-04-26] MEDS: Fioricet 325/50/40 mg Tablet PO PRN ×4 (00:42→23:17)
[2018-04-26] MEDS: Sodium Chloride 0.9% 1,000 ML IV SCH ×3 (00:43→20:17)
[2018-04-26] MEDS: HYDROcodone/Acetaminophen 5/325 mg Tablet PO PRN ×4 (03:38→20:01)
[2018-04-26 05:12] LABS: #Eosinphils 0.5 thou/uL (0.0-0.7); #Lymphocytes 1.6 thou/uL (1.20-3.40); #Monocytes 0.5 thou/uL (0.11-0.59); #Neutrophils 6.6 thou/uL (1.40-6.50); %Basophils 0.2 % (0.0-1.0); %Eosinophils 5.7 % (0.0-10.0); %Monocytes 5.2 % (0.0-10.0); Hemoglobin 7.7 g/dL (12.0-16.0); Mean Corpuscular HGB CONC 33.5 g/dL (32.0-36.0); Mean Corpuscular Hemoglobin 28.8 pg (27.0-31.0); Mean Corpuscular Volume 85.8 fL (78.0-98.0); Mean Platelet Volume 6.4 fL (7.4-10.4); Platelet Count 370 thou/uL (130-400); RBC Distribution Width 14.9 % (11.5-14.5); Red Blood Cell (RBC) Count 2.68 mill/uL (4.20-5.40); White Blood Cell (WBC) Count 9.2 thou/uL (4.8-10.8)
[2018-04-26 05:27] LABS: Anion Gap 13 mmol/L (10-20); BUN (Urea Nitrogen) 7 mg/dL (9.8-20.1); Calc. Creatinine Clearance 71 mL/min (70-130); Calcium 8.3 mg/dL (7.8-10.44); Carbon Dioxide 23 mmol/L (22-29); Chloride 104 mmol/L (98-107); Estimated GFR-MDRD 56; Glucose 203 mg/dL (70-105); Magnesium 1.5 mg/dL (1.6-2.6); Potassium 3.6 mmol/L (3.5-5.1); Sodium 136 mmol/L (136-145)
[2018-04-26] MEDS ORDERED: Magnesium Sulfate 2 GM in Sodium Chloride 0.9% 100 ML IVPB SCH ×2 (08:30→11:45)
[2018-04-26] MEDS: DULoxetine 30 MG CAP PO SCH ×2 (08:36→20:00)
[2018-04-26] MEDS: Saccharomyces boulardii 250 MG CAP PO SCH (08:37)
[2018-04-26] MEDS: Famotidine 20 MG TAB PO SCH (08:37)
[2018-04-26] MEDS: glipiZIDE 10 MG TAB PO SCH ×2 (08:37→16:23)
[2018-04-26] MEDS: Senokot S 8.6-50 MG TAB PO SCH ×2 (08:37→20:06)
[2018-04-26] MEDS: Enoxaparin Sodium 30 MG/0.3 ML SYRINGE SC SCH (08:38)
[2018-04-26] MEDS: guaiFENesin ER 600 MG TAB PO SCH ×2 (08:38→20:03)
[2018-04-26] MEDS: Pregabalin 75 MG CAP PO SCH ×2 (08:38→20:00)
[2018-04-26] MEDS: cefTRIAXone\\ROCEPHIN 2 GM in Sodium Chloride 0.9% 100 ML IVPB SCH (10:36)
[2018-04-26] MEDS: HumaLOG 300 UNITS/3 ML VIAL SC PRN (11:31)
[2018-04-26] MEDS: Atorvastatin Calcium 20 MG TAB PO SCH (20:02)
--- NOTE | 2018-04-26 21:29 | PDOC.PN ---
- Subjective Encounter Start Date: 04/26/18 Encounter Start Time: 09:00 Patient seen and examined for Sepsis. Pain better controlled. Tolerating PO well. No dysuria. No new complaints. No overnight events - Objective Resuscitation Status: Resuscitation Status FULL:Full Resuscitation MAR Reviewed: Yes Vital Signs & Weight: Vital Signs (12 hours) Temp Pulse Resp BP Pulse Ox 04/26/18 20:00 98.6 F 82 18 136/66 98 Weight Weight 164 lb 4.8 oz I&O: 04/25/18 04/26/18 04/27/18 06:59 06:59 06:59 Intake Total 4637 2460 3620 Output Total 2350 Balance 2287 2460 3620 Result Diagrams: 04/26/18 04:38 04/27/18 05:03 Additional Labs: Accuchecks 04/26/18 04/26/18 16:23 11:20 POC Glucose 162 H 293 H Microbiology 04/23/18 13:26 Venous blood - Right Hand Blood Culture - Final Citrobacter koseri 04/23/18 13:26 Venous blood - Left Hand Blood Culture - Final Citrobacter koseri 04/23/18 11:24 Urine voided Urine Culture - Final Citrobacter koseri Beta-hemolytic Streptococcus Laboratory Tests 04/26/18 04:38 BUN 7 L Creatinine 1.01 Magnesium 1.5 L Phys Exam - Physical Examination Constitutional: NAD Cardiovascular: RRR, no rub Gastrointestinal: soft, non-tender, positive bowel sounds Musculoskeletal: no edema Neurological: non-focal, moves all 4 limbs Dx/Plan - Plan DVT proph w/SCDs IMPRESSION: 1. Sepsis with acute organ dysfunction due to Acute Pyelonephritis due to Citrobacter with bacteremia 2. DM2 - better controlled 3. Acute pain due to #1 - improving 4. [place] on CKD 3/Hyponatremia - improving 5. Elevated troponins due to sepsis 6. Hypomagnesemia 7. Anemia - prob due to hemodilution PLAN: Cont Ceftriaxone Minimize IV Narcotics Cont sliding scale with home dose of Glipizide Replace Magnesium AM labs Cont current meds as below Add Miralax Review of Systems - Review of Systems Respiratory: negative: Cough, Dry, Shortness of Breath, Hemoptysis, SOB with Excertion, Pleuritic Pain, Sputum, Wheezing Cardiovascular: negative: chest pain, palpitations, orthopnea, paroxysmal nocturnal dyspnea, edema, light headedness, other Gastrointestinal: Constipation. negative: Nausea, Vomiting, Abdominal Pain, Diarrhea, Melena, Hematochezia, Other - Medications/Allergies Allergies/Adverse Reactions: Allergies Allergy/AdvReac Type Severity Reaction Status Date / Time MARGARET Inhibitors Allergy Severe Swollen Verified 04/23/18 16:23 Lips levofloxacin [From Levaquin] Allergy Hives Verified 04/23/18 16:23 Medications: Current Medications Acetaminophen (Tylenol) 650 mg PO Q4H PRN PRN Reason: Headache/Fever or Pain Last Admin: 04/25/18 21:33 Dose: 650 mg Acetaminophen/Butalbital/Caffeine (Fioricet) 1 tab PO Q6H PRN PRN Reason: Headache Stop: 04/30/18 10:24 Last Admin: 04/26/18 14:18 Dose: 1 tab Hydrocodone Bitart/Acetaminophen ([place] 5/325) 1 tab PO Q4H PRN PRN Reason: Moderate Pain (4-6) Last Admin: 04/25/18 08:06 Dose: 1 tab Hydrocodone Bitart/Acetaminophen ([place] 5/325) 2 tab PO Q4H PRN PRN Reason: Severe Pain (7-10) Last Admin: 04/26/18 20:01 Dose: 2 tab Atorvastatin Calcium (Lipitor) 20 mg PO HS [facility] Last Admin: 04/26/18 20:02 Dose: 20 mg Bisacodyl (Dulcolax) 10 mg PO DAILYPRN PRN PRN Reason: Constipation Dextrose/Water (Dextrose 50%) 25 gm SLOW IVP PRN PRN PRN Reason: Hypoglycemia Duloxetine HCl (Cymbalta) 30 mg PO BID [facility] Last Admin: 04/26/18 20:00 Dose: 30 mg Enoxaparin Sodium (Lovenox) 30 mg SC 0900 [facility] Last Admin: 04/26/18 08:38 Dose: 30 mg Famotidine (Pepcid) 20 mg PO 0900 [facility] Last Admin: 04/26/18 08:37 Dose: 20 mg Glipizide (Glucotrol) 20 mg PO BID[facility] Last Admin: 04/26/18 16:23 Dose: 20 mg Glucagon (Glucagon) 1 mg IM PRN PRN PRN Reason: Hypoglycemia Guaifenesin (Mucinex) 600 mg PO Q12HR [facility] Last Admin: 04/26/18 20:03 Dose: 600 mg Guaifenesin (Robitussin Sf) 200 mg PO Q4H PRN PRN Reason: Cough Last Admin: 04/24/18 15:09 Dose: 200 mg Dextrose/Water (D5w) 1,000 mls @ 0 mls/hr IV .Q0M PRN PRN Reason: Hypoglycemia Ceftriaxone Sodium 2 gm/ (Sodium Chloride) 100 mls @ 200 mls/hr IVPB Q24HR [facility] Last Admin: 04/26/18 10:36 Dose: 100 mls Insulin Human Lispro (Humalog) 0 units SC .MILD SLIDING SCALE PRN PRN Reason: Mild Correctional Scale Last Admin: 04/26/18 11:31 Dose: 4 unit Morphine Sulfate (Morphine) 2 mg IVP Q4H PRN PRN Reason: Severe Pain (7-10) Ondansetron HCl (Zofran Odt) 4 mg PO Q6H PRN PRN Reason: Nausea/Vomiting Ondansetron HCl (Zofran) 4 mg IVP Q6H PRN PRN Reason: Nausea/Vomiting Pregabalin (Lyrica) 150 mg PO BID [facility] Last Admin: 04/26/18 20:00 Dose: 150 mg Saccharomyces Boulardii (Florastor) 250 mg PO DAILY [facility] Last Admin: 04/26/18 08:37 Dose: 250 mg Senna/Docusate Sodium (Senokot S) 1 tab PO BID [facility] Last Admin: 04/26/18 20:06 Dose: Not Given Sodium Chloride (Flush - Normal Saline) 10 ml IVF PRN PRN PRN Reason: Saline Flush Last Admin: 04/24/18 22:10 Dose: 10 ml
--- NOTE | 2018-04-26 21:59 | PRG ---
DATE OF SERVICE: 04/26/2018 SUBJECTIVE: Patient is seen and examined and noted with the following vital signs. PHYSICAL EXAMINATION: VITAL SIGNS: Afebrile, temperature 98.4, pulse 85, respiratory 18, O2 sat 98% with blood pressure 13 9/56. HEENT: Unremarkable. Moist oral mucosa. Neck was supple, No conjunctival injection or icterus. CARDIOVASCULAR: First and second heart sounds were heard. RESPIRATORY: Clear to auscultation. DIGESTIVE: Revealed a benign abdomen with positive bowel sounds. EXTREMITIES: No peripheral edema. SKIN: No new gross rash. LYMPHATICS: No peripheral lymphadenopathy. IMPRESSION: 1. Urinary tract infection which seems to have responded to the current treatment. 2. Acute kidney injury, resolved. PLAN: 1. Discontinue IV fluid. 2. From the renal standpoint, the patient is good for discharge.
[2018-04-27] MEDS: HYDROcodone/Acetaminophen 5/325 mg Tablet PO PRN ×3 (01:04→12:05)
[2018-04-27 05:40] LABS: Anion Gap 13 mmol/L (10-20); BUN (Urea Nitrogen) 7 mg/dL (9.8-20.1); Calc. Creatinine Clearance 67 mL/min (70-130); Calcium 8.6 mg/dL (7.8-10.44); Carbon Dioxide 22 mmol/L (22-29); Chloride 107 mmol/L (98-107); Estimated GFR-MDRD 52; Glucose 160 mg/dL (70-105); Magnesium 1.7 mg/dL (1.6-2.6); Potassium 3.5 mmol/L (3.5-5.1); Sodium 138 mmol/L (136-145)
[2018-04-27] MEDS: Fioricet 325/50/40 mg Tablet PO PRN ×3 (05:49→20:23)
[2018-04-27] MEDS: glipiZIDE 10 MG TAB PO SCH ×2 (07:55→15:46)
[2018-04-27] MEDS: Saccharomyces boulardii 250 MG CAP PO SCH (07:55)
[2018-04-27] MEDS: Pregabalin 75 MG CAP PO SCH ×2 (07:56→20:24)
[2018-04-27] MEDS: Enoxaparin Sodium 30 MG/0.3 ML SYRINGE SC SCH (07:57)
[2018-04-27] MEDS: Senokot S 8.6-50 MG TAB PO SCH ×2 (07:57→20:29)
[2018-04-27] MEDS: DULoxetine 30 MG CAP PO SCH ×2 (07:57→20:23)
[2018-04-27] MEDS: cefTRIAXone\\ROCEPHIN 2 GM in Sodium Chloride 0.9% 100 ML IVPB SCH (07:57)
[2018-04-27] MEDS: guaiFENesin ER 600 MG TAB PO SCH ×2 (07:57→20:23)
[2018-04-27] MEDS: Famotidine 20 MG TAB PO SCH (07:57)
[2018-04-27] MEDS ORDERED: Sodium Chloride 0.65% Nasal 44 ML BOT EA NARE PRN (08:19)
[2018-04-27 08:35] LABS: Hemoglobin 7.7 g/dL (12.0-16.0)
[2018-04-27] MEDS: Polyethylene Glycol 3350 17 GM Packet PO SCH (10:42)
[2018-04-27] MEDS ORDERED: Acetaminophen/Codeine 30-300mg Tablet PO PRN (12:13)
[2018-04-27] MEDS ORDERED: Insulin Regular 300 UNITS/3 ML VIAL SC PRN (15:43)
[2018-04-27] MEDS: Acetaminophen/Codeine 30-300mg Tablet PO PRN ×2 (15:46→22:20)
[2018-04-27] MEDS: HumaLOG 300 UNITS/3 ML VIAL SC PRN (15:47)
--- NOTE | 2018-04-27 17:57 | PRG ---
DATE OF SERVICE: 04/27/2018 SUBJECTIVE: The patient is noted with the following vital signs. Doing much better. PHYSICAL EXAMINATION: VITAL SIGNS: Afebrile, temperature 97.9, pulse 72, respiratory rate of 18, blood pressure 124/63, O2 saturation 98%. HEENT: Unremarkable. CARDIOVASCULAR: First and second heart sounds were heard. RESPIRATORY: Clear to auscultation. DIGESTIVE: Revealed a benign abdomen. Positive bowel sounds. EXTREMITIES: No peripheral edema. SKIN: No new gross rash. LYMPHATICS: No peripheral lymphadenopathy. IMPRESSION: 1. Acute kidney injury, resolved. 2. Hyponatremia, resolved. 3. Urinary tract infection with sepsis, on treatment. 4. Anemia. PLAN: 1. Continue renal supportive measures. 2. Avoid excessive blood draws to not to compound the current anemia state. 3. Further management will be dependent on the clinical course.
[2018-04-27] MEDS: Atorvastatin Calcium 20 MG TAB PO SCH (20:23)
--- NOTE | 2018-04-27 22:20 | PDOC.PN ---
- Subjective Encounter Start Date: 04/27/18 Encounter Start Time: 09:00 Patient seen and examined for Sepsis. No new complaints. Feels better. No overnight events - Objective Resuscitation Status: Resuscitation Status FULL:Full Resuscitation MAR Reviewed: Yes Vital Signs & Weight: Vital Signs (12 hours) Temp Pulse Resp BP Pulse Ox 04/27/18 19:01 98.3 F 75 16 127/69 97 Weight Weight 164 lb 4.8 oz I&O: 04/26/18 04/27/18 04/28/18 06:59 06:59 06:59 Intake Total 2460 3620 Balance 2460 3620 Result Diagrams: 04/27/18 05:02 04/27/18 05:03 Additional Labs: Accuchecks 04/27/18 04/27/18 15:34 10:41 POC Glucose 310 H 239 H Phys Exam - Physical Examination Constitutional: NAD Respiratory: no wheezing, no rhonchi Cardiovascular: RRR, no rub Gastrointestinal: soft, non-tender, positive bowel sounds mild Rt flank tenderness Musculoskeletal: no edema Neurological: non-focal, moves all 4 limbs Dx/Plan - Plan DVT proph w/SCDs IMPRESSION: 1. Sepsis with acute organ dysfunction due to Acute Pyelonephritis due to Citrobacter with bacteremia 2. DM2 - on Glipizide with sliding scale 3. Acute pain due to #1 - better controlled. 4. [place] on CKD 3/Hyponatremia - improving 5. Elevated troponins due to sepsis 6. Hypomagnesemia - replaced 7. Anemia - prob due to hemodilution PLAN: Cont IV Ceftriaxone x 24 hr DC IV Morphine Cont sliding scale with Glipizide DC in AM if stable Cont current meds as below Review of Systems - Review of Systems Respiratory: negative: Cough, Dry, Shortness of Breath, Hemoptysis, SOB with Excertion, Pleuritic Pain, Sputum, Wheezing Cardiovascular: negative: chest pain, palpitations, orthopnea, paroxysmal nocturnal dyspnea, edema, light headedness, other - Medications/Allergies Allergies/Adverse Reactions: Allergies Allergy/AdvReac Type Severity Reaction Status Date / Time MARGARET Inhibitors Allergy Severe Swollen Verified 04/23/18 16:23 Lips levofloxacin [From Levaquin] Allergy Hives Verified 04/23/18 16:23 Medications: Current Medications Acetaminophen (Tylenol) 650 mg PO Q4H PRN PRN Reason: Headache/Fever or Pain Last Admin: 08/17/18 21:33 Dose: 650 mg Acetaminophen/Butalbital/Caffeine (Fioricet) 1 tab PO BID PRN PRN Reason: Headache Stop: 05/02/18 21:01 Last Admin: 04/27/18 20:23 Dose: 1 tab Acetaminophen/Codeine Phosphate (Tylenol #3) 1 tab PO Q4H PRN PRN Reason: Moderate Pain (4-6) Last Admin: 04/27/18 15:46 Dose: 1 tab Atorvastatin Calcium (Lipitor) 20 mg PO HS [facility] Last Admin: 04/27/18 20:23 Dose: 20 mg Bisacodyl (Dulcolax) 10 mg PO DAILYPRN PRN PRN Reason: Constipation Dextrose/Water (Dextrose 50%) 25 gm SLOW IVP PRN PRN PRN Reason: Hypoglycemia Duloxetine HCl (Cymbalta) 30 mg PO BID [facility] Last Admin: 04/27/18 20:23 Dose: 30 mg Famotidine (Pepcid) 20 mg PO 0900 [facility] Last Admin: 04/27/18 07:57 Dose: 20 mg Glipizide (Glucotrol) 20 mg PO BID-AC [facility] Last Admin: 04/27/18 15:46 Dose: 20 mg Glucagon (Glucagon) 1 mg IM PRN PRN PRN Reason: Hypoglycemia Guaifenesin (Mucinex) 600 mg PO Q12HR [facility] Last Admin: 04/27/18 20:23 Dose: 600 mg Guaifenesin (Robitussin Sf) 200 mg PO Q4H PRN PRN Reason: Cough Last Admin: 04/24/18 15:09 Dose: 200 mg Dextrose/Water (D5w) 1,000 mls @ 0 mls/hr IV .Q0M PRN PRN Reason: Hypoglycemia Ceftriaxone Sodium 2 gm/ (Sodium Chloride) 100 mls @ 200 mls/hr IVPB Q24HR [facility] Last Admin: 04/27/18 07:57 Dose: 100 mls Insulin Human Regular (Humulin R) 0 units SC .MODERATE SLIDING SC PRN PRN Reason: Moderate Correctional Scale Multivitamins (Theragran) 1 tab PO DAILY [facility] Ondansetron HCl (Zofran Odt) 4 mg PO Q6H PRN PRN Reason: Nausea/Vomiting Ondansetron HCl (Zofran) 4 mg IVP Q6H PRN PRN Reason: Nausea/Vomiting Polyethylene Glycol (Miralax) 17 gm PO DAILY [facility] Last Admin: 04/27/18 10:42 Dose: 17 gm Pregabalin (Lyrica) 150 mg PO BID [facility] Last Admin: 04/27/18 20:24 Dose: 150 mg Saccharomyces Boulardii (Florastor) 250 mg PO DAILY [facility] Last Admin: 04/27/18 07:55 Dose: 250 mg Senna/Docusate Sodium (Senokot S) 1 tab PO BID [facility] Last Admin: 04/27/18 20:29 Dose: Not Given Sodium Chloride (Flush - Normal Saline) 10 ml IVF PRN PRN PRN Reason: Saline Flush Last Admin: 04/24/18 22:10 Dose: 10 ml Sodium Chloride ([place] 0.65%) 0 ml EA NARE TID PRN PRN Reason: Nasal Congestion
[2018-04-28] MEDS: Acetaminophen 325 MG TAB PO PRN (02:02)
[2018-04-28] MEDS: Acetaminophen/Codeine 30-300mg Tablet PO PRN ×3 (06:26→14:49)
[2018-04-28] MEDS: Saccharomyces boulardii 250 MG CAP PO SCH (07:42)
[2018-04-28] MEDS: Senokot S 8.6-50 MG TAB PO SCH (07:42)
[2018-04-28] MEDS: guaiFENesin ER 600 MG TAB PO SCH (07:42)
[2018-04-28] MEDS: Pregabalin 75 MG CAP PO SCH (07:42)
[2018-04-28] MEDS: glipiZIDE 10 MG TAB PO SCH ×2 (07:43→17:05)
[2018-04-28] MEDS: Fioricet 325/50/40 mg Tablet PO PRN (07:44)
[2018-04-28] MEDS: DULoxetine 30 MG CAP PO SCH (07:44)
[2018-04-28] MEDS: Famotidine 20 MG TAB PO SCH (07:44)
[2018-04-28] MEDS: Polyethylene Glycol 3350 17 GM Packet PO SCH (07:55)
[2018-04-28 08:06] VITALS: TEMP 97.9
[2018-04-28] MEDS ORDERED: Multivit, Therapeutic 1 TAB PO SCH (09:00)
[2018-04-28] MEDS: cefTRIAXone\\ROCEPHIN 2 GM in Sodium Chloride 0.9% 100 ML IVPB SCH (10:40)
[2018-04-28] MEDS ORDERED: cloNIDine 0.1 MG TAB PO PRN (15:12)
[2018-04-28 15:33] VITALS: BP 173/80
[2018-04-28] MEDS ORDERED: Sulfameth/Trimethoprim DS 800-160mg TAB PO SCH (21:00)
--- NOTE | 2018-04-29 14:22 | DIS ---
DATE OF ADMISSION: 04/23/2018 DATE OF DISCHARGE: 04/28/2018 DISCHARGE DISPOSITION: Home. FOLLOWUP: Follow up with primary care physician, Dr. Hayde Velasco in one week. ALLERGIES: Patient is allergic to [employer] and LEVAQUIN. Patient was seen and examined on the day of discharge, denies any new complaints, no chest pain, shor tness of breath, palpitations. DISCHARGE MEDICATIONS: Bactrim double-strength 1 tablet twice a day, #20. A repeat base met next we ek is recommended. Primary care physician advised to follow. All other home medications were left, unchanged. BRIEF HOSPITAL COURSE: Patient is a 57-year-old female with hypertension, hyperlipidemia, and diabet es mellitus type 2, presented to the hospital with abdominal discomfort. She underwent CT scan of th e abdomen in the emergency room with contrast that showed right perinephric stranding, edema with mil d right-sided hydronephrosis and proximal right hydroureter. There was also some urinary bladder wal l thickening. Please refer to the history and physical for further details. The patient was admitted to the hospital with a diagnosis of sepsis with acute organ dysfunction seco ndary to acute pyelonephritis. Blood culture showed Citrobacter sensitive to BACTRIM. Please note t hat patient is allergic to LEVAQUIN. On admission, Urology and Nephrology were consulted. She also had mild acute kidney injury with creatinine of 1.54 that has resolved. Sodium on admission was 127 that has improved to 138 at the time of discharge. WBC count on admission was 18.1 with 31% bandemia . Two days ago, her WBC count has normalized to 9.2. She appears stable for discharge. FOLLOWUP: Primary care physician is advised to arrange a followup with urologist. Patient will also need a repeat hemoglobin after 1 week. Her hemoglobin at discharge was 7.7. It wa s probably hemo-dilutional. She denied any melena or hematochezia. FINAL DIAGNOSES: 1. Sepsis with acute organ dysfunction secondary to acute pyelonephritis. 2. Urinary tract infection secondary to Citrobacter. 3. Citrobacter bacteremia. 4. Diabetes mellitus, type 2. 5. Acute kidney injury on chronic kidney disease, stage 3, resolved. 6. Hyponatremia, resolved. 7. Elevated troponins in the indeterminate range, probably secondary to sepsis. 8. Hypomagnesemia. 9. Chronic pain syndrome. 10. Hydronephrosis on the CT scan. Primary care physician is advised to follow. 11. Left nephrolithiasis. Plan of care was discussed with the patient in detail. She stated understanding.
== END 2018-04-28 17:22 | disposition home or self-care (01) | DRG 872 ==
LOC: ERS 10:14 → ONC 13:37
PROVIDERS: ADMIT Internal Medicine; ATTEND Internal Medicine
DX: A41.59 Other Gram-negative sepsis (principal); N17.9 Acute kidney failure, unspecified; E87.1 Hypo-osmolality and hyponatremia; N13.6 Pyonephrosis; E11.22 Type 2 diabetes mellitus with diabetic chronic kidney disease; E83.42 Hypomagnesemia; I12.9 Hypertensive chronic kidney disease with stage 1 through stage 4 chronic kidney disease, or unspecified chronic kidney disease; N18.3 Chronic kidney disease, stage 3 (moderate); R65.20 Severe sepsis without septic shock; E78.5 Hyperlipidemia, unspecified; K21.9 Gastro-esophageal reflux disease without esophagitis; F41.9 Anxiety disorder, unspecified; F32.9 Major depressive disorder, single episode, unspecified; G89.4 Chronic pain syndrome; N20.0 Calculus of kidney; Z87.891 Personal history of nicotine dependence; Z88.1 Allergy status to other antibiotic agents; Z88.8 Allergy status to other drugs, medicaments and biological substances; Z79.84 Long term (current) use of oral hypoglycemic drugs; Z79.899 Other long term (current) drug therapy
CPT/HCPCS: 36415; 36416; 74177; 76770; 80048; 80053; 81003; 81015; 81025; 82553; 83605; 83690; 83735; 83935; 84300; 84484; 85014; 85018; 85025; 87040; 87077; 87086; 87149; 87186; 96361; 96365; 96375; A4216; C9113; J0696; J1650; J1815; J1885; J2060; J2185; J2270; J3475; J7050; Q0162

== ENCOUNTER 2018-11-03 14:20 | Outpatient (CLI) | payer MEDICARE, MEDICAID ==
--- NOTE | 2018-11-03 15:46 | RAD ---
TWO VIEWS CHEST: Comparison: 03-05-18 History: Dyspnea for one year. FINDINGS: Two views of the chest shows a normal sized cardiomediastinal silhouette. Increased interstitial ronna ings are present. There is no evidence of consolidation, mass or pleural effusion. IMPRESSION: No evidence of acute cardiopulmonary disease. POS: [facility]
== END 2018-11-03 14:21 | disposition home or self-care (01) ==
LOC: RAD 14:20 → BICRAD 14:21
PROVIDERS: ATTEND Internal Medicine Pulmonary Disease
DX: R06.00 Dyspnea, unspecified (principal)
CPT/HCPCS: 71046

== ENCOUNTER 2018-12-25 13:50 | Outpatient (CLI) | payer MEDICARE, MEDICAID ==
--- NOTE | 2018-12-25 16:00 | MMO ---
Bilateral MAMMO Bilat Screen [facility]. CLINICAL HISTORY: Patient is 58 years old and is seen for screening. The patient has no family history of breast cancer. The patient has no personal history of cancer. VIEWS: The views performed were: bilateral craniocaudal with tomosynthesis and bilateral mediolateral oblique with tomosynthesis. FILMS COMPARED: The present examination has been compared to a prior imaging study performed at [facility] on 12/10/2017. MAMMOGRAM FINDINGS: There are scattered fibroglandular densities. There are no suspicious masses, suspicious calcifications, or new areas of architectural distortion. IMPRESSION: THERE IS NO MAMMOGRAPHIC EVIDENCE OF MALIGNANCY. A ROUTINE FOLLOW-UP MAMMOGRAM IN 1 YEAR IS RECOMMENDED. THE RESULTS OF THIS EXAM WERE SENT TO THE PATIENT. ACR BI-RADS Category 1 - Negative MAMMOGRAPHY NOTE: 1. A negative mammogram report should not delay a biopsy if a dominant of clinically suspicious mass is present. 2. Approximately 10% to 15% of breast cancers are not detected by mammography. 3. Adenosis and dense breasts may obscure an underlying neoplasm.
== END 2018-12-25 13:51 | disposition home or self-care (01) ==
LOC: BICMAMMO 13:50
PROVIDERS: ATTEND Family Medicine
DX: Z12.31 Encounter for screening mammogram for malignant neoplasm of breast (principal)
CPT/HCPCS: 77063; 77067

== ENCOUNTER 2019-03-16 19:34 | Emergency (ER) | payer MEDICARE, MEDICAID ==
[2019-03-16] MEDS ORDERED: diphenhydrAMINE 25 MG CAP ONE (20:36)
[2019-03-16] MEDS ORDERED: Dexamethasone 4 mg/ml Vial ONE (20:36)
== END 2019-03-16 22:48 | disposition home or self-care (01) ==
LOC: ERS 19:34
DX: T78.40XA Allergy, unspecified, initial encounter (principal); S20.319A Abrasion of unspecified front wall of thorax, initial encounter; S30.811A Abrasion of abdominal wall, initial encounter; S10.91XA Abrasion of unspecified part of neck, initial encounter; K21.9 Gastro-esophageal reflux disease without esophagitis; E11.9 Type 2 diabetes mellitus without complications; E78.5 Hyperlipidemia, unspecified; I10 Essential (primary) hypertension; Z87.891 Personal history of nicotine dependence
CPT/HCPCS: 99282; J1100; Q0163

== ENCOUNTER 2019-05-06 13:12 | Emergency (ER) | payer MEDICARE, MEDICAID ==
[2019-05-06] MEDS ORDERED: methylPREDNISolone Sod Succ/PF 125 MG/2 ML VIAL ONE (13:59)
--- NOTE | 2019-05-06 15:10 | RAD ---
XR Chest Pa Lat STANDARD HISTORY: Cough, fever COMPARISON: 11/03/2018 FINDINGS: The heart size is normal. The lungs are well expanded without focal areas of consolidation, pneumothorax or pleural effusions. Chronic interstitial changes are again seen.. IMPRESSION: No radiographic evidence of acute cardiopulmonary process.
== END 2019-05-06 15:30 | disposition home or self-care (01) ==
LOC: ERS 13:12
DX: J44.0 Chronic obstructive pulmonary disease with (acute) lower respiratory infection (principal); J18.9 Pneumonia, unspecified organism; J44.1 Chronic obstructive pulmonary disease with (acute) exacerbation; E11.9 Type 2 diabetes mellitus without complications; E78.5 Hyperlipidemia, unspecified; K21.9 Gastro-esophageal reflux disease without esophagitis; I10 Essential (primary) hypertension; F32.9 Major depressive disorder, single episode, unspecified; Z79.52 Long term (current) use of systemic steroids; Z87.891 Personal history of nicotine dependence
CPT/HCPCS: 71046; 94640; 96372; J2930; J7620

== ENCOUNTER 2019-05-27 14:02 | Outpatient (CLI) | payer MEDICARE, MEDICAID ==
--- NOTE | 2019-05-27 14:21 | RAD ---
EXAM: Chest Two Views 05/27/2019 2:17 PM HISTORY: History of pneumonia COMPARISON: April 28, 2019 FINDINGS: Heart: Stable mild cardiomegaly Pulmonary vessels: Normal. Costophrenic angles: Clear. Lungs: There is increased interstitial opacities seen within the region of the right lower lobe and p ortions of the left lower lobe which may reflect an interstitial pneumonia. There is no confluent airspace opacity to suggest bacterial pneumonia. Pneumothorax: None. Osseous structures:Intact. Additional findings: Cholecystectomy clips are seen within the right upper quadrant of the abdomen. IMPRESSION: Increased interstitial opacities of both lower lobe suspicious for an interstitial pneumonia. Recomme nd radiographic follow-up to resolution. Recommend correlation.
== END 2019-05-27 14:03 | disposition home or self-care (01) ==
LOC: BICRAD 14:02
PROVIDERS: ATTEND Family Medicine
DX: J18.9 Pneumonia, unspecified organism (principal); R91.8 Other nonspecific abnormal finding of lung field
CPT/HCPCS: 71046

== ENCOUNTER 2019-08-17 11:25 | Outpatient (CLI) | payer MEDICARE, MEDICAID ==
[2019-08-17 12:39] LABS: #Basophils 0.1 thou/uL (0.0-0.2); #Eosinphils 0.2 thou/uL (0.0-0.7); #Lymphocytes 2.2 thou/uL (1.20-3.40); #Monocytes 0.7 thou/uL (0.11-0.59); #Neutrophils 7.7 thou/uL (1.40-6.50); %Basophils 0.5 % (0.0-1.0); %Eosinophils 2.1 % (0.0-10.0); %Lymphocytes 20.4 % (21.0-51.0); %Monocytes 6.2 % (0.0-10.0); %Neutrophils 70.8 % (42.0-75.0); Hemoglobin 10.7 g/dL (12.0-16.0); Mean Corpuscular HGB CONC 32.3 g/dL (32.0-36.0); Mean Corpuscular Hemoglobin 24.2 pg (27.0-31.0); Mean Corpuscular Volume 74.9 fL (78.0-98.0); Mean Platelet Volume 10.1 fL (7.4-10.4); Platelet Count 222 thou/uL (130-400); RBC Distribution Width 15.6 % (11.5-14.5); Red Blood Cell (RBC) Count 4.44 mill/uL (4.20-5.40); White Blood Cell (WBC) Count 10.8 thou/uL (4.8-10.8)
[2019-08-17 12:43] LABS: PTT 32.3 SEC (22.9-36.1); Prothrombin Time 13.3 SEC (12.0-14.7)
[2019-08-17 12:51] LABS: Anisocytosis SLIGHT = 6-15 cells (100X) (0-5/hpf); Hypochromia SLIGHT = 6-15 cells (100X) (0-5/hpf); MDiff Complete? YES; Microcytosis SLIGHT = 6-15 cells (100X) (0-5/hpf); Platelet Morphology Comment Appears Adequate; Polychromasia SLIGHT = 2-3 cells (100X) (0-2/hpf)
[2019-08-17 13:10] LABS: ALT (SGPT) 20 U/L (8-55); AST (SGOT) 21 U/L (5-34); Albumin 4.6 g/dL (3.5-5.0); Alkaline Phosphatase 180 U/L (40-110); Anion Gap 15 mmol/L (10-20); BUN (Urea Nitrogen) 9 mg/dL (9.8-20.1); Bilirubin, Total 0.4 mg/dL (0.2-1.2); Calc. Creatinine Clearance 0 mL/min (70-130); Calcium 9.5 mg/dL (7.8-10.44); Carbon Dioxide 20 mmol/L (22-29); Chloride 109 mmol/L (98-107); Cholesterol 149 mg/dl (< 200 Desired); Estimated GFR-MDRD 35; Globulin 3.5 g/dL (2.4-3.5); Glucose 217 mg/dL (70-105); HDL Cholesterol 30 mg/dL (>60 Neg Risk); LDL Cholesterol, Calculated 68 mg/dL; Protein, Total 8.1 g/dL (6.0-8.3); Sodium 140 mmol/L (136-145); Triglycerides 255 mg/dL (Less than 150)
== END 2019-08-17 11:26 | disposition home or self-care (01) ==
LOC: LABBT 11:25
PROVIDERS: ATTEND Internal Medicine Cardiovascular Disease
DX: Z01.812 Encounter for preprocedural laboratory examination (principal); R94.39 Abnormal result of other cardiovascular function study
CPT/HCPCS: 80053; 80061; 85025; 85610; 85730

== ENCOUNTER → 2019-08-21 | Day surgery (SDC) | payer MEDICARE, MEDICAID ==
[2019-08-17 11:37] VITALS: BMI 25.0
[~2019-08-21] MED LIST: Fentanyl 100 MCG/2 ML VIAL ONE; Heparin (Artline) 1,000 ML ONE; Heparin 10,000 UNITS/1 ML VIAL ONE; Iopamidol 370 76% 100 ML VIAL ONE; Midazolam HCl 2 mg/2 ml Vial ONE; Nitroglycerin 100MG/250ML BOT 250 ML ONE; Verapamil 5 MG/2 ML VIAL ONE
== END ==
LOC: CCL 05:31
PROVIDERS: ATTEND Internal Medicine Cardiovascular Disease
PROC: 4A023N7 Measurement of Cardiac Sampling and Pressure, Left Heart, Percutaneous Approach (ICD-10-PCS; principal; 2019-08-21)
PROC: B2111ZZ Fluoroscopy of Multiple Coronary Arteries using Low Osmolar Contrast (ICD-10-PCS; 2019-08-21)
DX: R06.02 Shortness of breath (principal); R94.39 Abnormal result of other cardiovascular function study; E11.9 Type 2 diabetes mellitus without complications; F17.210 Nicotine dependence, cigarettes, uncomplicated; Z82.49 Family history of ischemic heart disease and other diseases of the circulatory system; Z79.4 Long term (current) use of insulin; Z79.899 Other long term (current) drug therapy; Z88.1 Allergy status to other antibiotic agents; Z88.8 Allergy status to other drugs, medicaments and biological substances
CPT/HCPCS: 36416; 93458; 99152; C1769; J1644; J2250; J3010; Q9967